=== PATIENT | female | born 1990 | race Caucasian/White ===

== ENCOUNTER → 2016-09-16 | Outpatient (CLI) | payer MEDICAID ==
--- NOTE | 2016-09-17 10:20 | US ---
EXAMINATION TYPE: US OB >= 14 wk fetus, US OB TV Cervical Measurement DATE OF EXAM: 09/17/2016 8:04 AM COMPARISON: Us on PACS HISTORY: 26-year-old female, history of pre-term delivery; ; for growth TECHNIQUE: Transabdominal (TA). (Transvaginal for cervical measurement). FINDINGS: EXAM MEASUREMENTS: GESTATIONAL AGE / DATING Physician Established: (23 weeks/ 6 days) EDC: 01/07/2017 Dates by LMP: (23 weeks/ 6 days) EDC: 01/07/2017 Dates by First Scan: (23 weeks/ 5 days) EDC: 01/06/2017 Dates by Current Scan: (24 weeks/ 6 days +/- 1W5D) EDC: 12/31/2016 SURVEY IUP: Single PLACENTA: Fundal posterior PREVIA: No previa DAR: 14.3 cm Normal CERVICAL LENGTH (transabdominal: norm > 3.0cm): 5.4 cm CERVICAL LENGTH (transvaginal: norm> 2.5cm): 4.1 cm (Supplemental transvaginal imaging performed to verify cervical length.) BIOMETRY PRESENTATION: Vertex LIE: Transverse lie with head maternal Left BPD: 6.2 cm 25 weeks / 2 days HC: 22.5 cm 24 weeks / 4 days AC: 20.2 cm 24 weeks / 6 days FL: 4.4 cm 24 weeks / 4 days ESTIMATED WEIGHT IN GRAMS: 725.3 grams ESTIMATED WEIGHT IN LBS/OZS: 1 lbs. 10oz. WEIGHT PERCENTAGE BASED ON ESTABLISHED DATE: 80.3 % HC/AC: 1.11 normal FL/AC: 21.84 normal HEART RATE: 130 bpm RHYTHM: Normal IMPRESSION: 1. Single live intrauterine with estimated gestational age of 23 weeks 6 days by LMP. Curre nt ultrasound biometry is concordant but larger (24 weeks 6 days) placing the child at the 80th perce ntile for weight. 2. Transvaginal scanning for assessment of cervical length shows a normal length of 4.1 cm.
== END ==
LOC: RADUSWWP 15:34
PROVIDERS: ATTEND Obstetrics & Gynecology
DX: Z87.51 Personal history of pre-term labor (principal); Z3A.23 23 weeks gestation of pregnancy
CPT/HCPCS: 76805; 76811; 76817

== ENCOUNTER → 2016-10-05 | Outpatient (CLI) | payer MEDICAID ==
--- NOTE | 2016-10-06 13:28 | US ---
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 with prior ; TECHNIQUE: Transabdominal (TA) GESTATIONAL AGE / DATING Physician Established: (26 weeks/4 days) EDC: 01/07/2017 Dates by LMP: (26 weeks/4 days) EDC: 01/07/2017 Dates by First Scan: (26 weeks/5 days) EDC: 01/06/2017 Dates by Current Scan: (28 weeks/0 days) EDC: 12/28/2016 SURVEY IUP: Single PLACENTA: Fundal PREVIA: No Previa DAR: 16.3 cm Normal CERVICAL LENGTH (transabdominal: norm > 3.0cm): 5.0 cm CERVICAL LENGTH (transvaginal: norm> 2.5cm): 3.5 cm (Supplemental transvaginal imaging performed to verify cervical length.) BIOMETRY PRESENTATION: Vertex LIE: Transverse with head maternal Left BPD: 7.1 cm 28 weeks / 3 days HC: 25.6 cm 27 weeks / 6 days AC: 24.0 cm 28. weeks / 2 days FL: 5.1 cm 27 weeks / 3 days ESTIMATED WEIGHT IN GRAMS: 1153 grams ESTIMATED WEIGHT IN LBS/OZ: 2 lbs. 9 oz. WEIGHT PERCENTAGE BASED ON ESTABLISHED DATES: 89.9% HC/AC: 1.07 Normal FL/AC: 21.38 Normal HEART RATE: 143 bpm RHYTHM: Normal TECHNOLOGIST IMPRESSION: Single, live, IUP,28 weeks/0 days; EDC: 12/28/2016; Cervix length wnl both TA and TVUS. , IMPRESSION: 1. Single intrauterine gestation estimated at 28 weeks 0 days gestation. This is a calculated EDC of 12/28/2016. 2. Cardiac activity measures 1 43 bpm. 3. small parts are not evaluated during this examination. 4. Cervical length is normal by transabdominal and transvaginal sonography measurements.
--- NOTE | 2016-10-06 13:29 | US ---
EXAMINATION TYPE: US OB TV Cervical Measurement DATE OF EXAM: 10/05/2016 5:10 PM COMPARISON: NONE REASON FOR EXAM: Per Ordering Physician?this transvaginal scan is to assess the CERVICAL LENGTH for i ncompetence or funneling. Transvaginal sonography is performed in conjunction with transabdominal sonography. Please see transa bdominal sonography report of same date. IMPRESSION: 1. Single intrauterine gestation estimated at 28 weeks 0 days gestation. This is a calculated EDC of 12/28/2016. 2. Cardiac activity measures 143 bpm. 3. small parts are not evaluated during this examination. 4. Cervical length is normal by transabdominal and transvaginal sonography measurements.
== END | disposition home or self-care (01) ==
LOC: RADUSWWP 15:56
PROVIDERS: ATTEND Obstetrics & Gynecology
DX: O34.32 Maternal care for cervical incompetence, second trimester (principal); Z3A.26 26 weeks gestation of pregnancy
CPT/HCPCS: 76805; 76817

== ENCOUNTER → 2016-10-10 | Outpatient (CLI) | payer MEDICAID ==
[2016-10-10 09:55] LABS: CH 34.5; CHCM 36.2; HDW 2.98; HGB 11.5 gm/dL (11.4-16.0); MCH 34.4 pg (25.0-35.0); MCHC 35.8 g/dL (31.0-37.0); Mean Platelet Volume 9.3; RBC 3.34 m/uL (3.80-5.40); RDW 13.6 % (11.5-15.5); WBC 7.4 k/uL (3.8-10.6)
== END | disposition home or self-care (01) ==
LOC: LABWHC1 08:32
PROVIDERS: ATTEND Obstetrics & Gynecology
DX: Z34.82 Encounter for supervision of other normal pregnancy, second trimester (principal); Z3A.00 Weeks of gestation of pregnancy not specified
CPT/HCPCS: 36415; 82950; 85027; 86850

== ENCOUNTER 2016-12-15 11:21 | Emergency (ER) | payer MEDICAID, OTHER ==
[2016-12-15 11:41] VITALS: BP 119/75; PULSE 76; RESP 18; TEMP 98.1
--- NOTE | 2016-12-15 12:29 | ED ---
General Adult HPI - General Chief complaint: Needlestick/Exposure Stated complaint: [facility]-needle stick Time Seen by Provider: 12/15/16 12:11 Source: patient, RN notes reviewed Mode of arrival: ambulatory Limitations: no limitations - History of Present Illness Initial comments: Patient is a 26-year-old female presents to the emergency room for evaluation of needle stick exposure. Patient states she accidentally poked herself with a 22-gauge needle on her right third digit after the a needle was injected into the patient. Patient states the site did slightly bleed afterwards. Patient denies any pain. Patient states she is up-to-date on all her immunizations. Patient states she is not sure if the source is up-to-date on immunizations. Patient states she has the resources blood with her to be tested as well. - Related Data Home Medications Medication Instructions Recorded Confirmed Pnv with Ca,No.72/Iron/FA 1 tab PO DAILY 08/16/15 11/25/15 [ Plus Tablet] Allergies Allergy/AdvReac Type Severity Reaction Status Date / Time No Known Allergies Allergy Verified 12/15/16 11:41 Review of Systems ROS Statement: Those systems with pertinent positive or pertinent negative responses have been documented in the HPI. ROS Other: All systems not noted in ROS Statement are negative. Past Medical History Past Medical History: No Reported History History of Any Multi-Drug Resistant Organisms: None Reported Past Surgical History: No Surgical Hx Reported Additional Past Surgical History / Comment(s): wisdom teeth pulled Past Anesthesia/Blood Transfusion Reactions: No Reported Reaction Past Psychological History: No Psychological Hx Reported Smoking Status: Never smoker Past Alcohol Use History: None Reported Past Drug Use History: None Reported - Past Family History Mother Family Medical History: No Reported History General Exam - General Exam Comments Initial Comments: Sitting in exam room, no acute distress. Limitations: no limitations General appearance: alert, in no apparent distress Head exam: Present: atraumatic, normocephalic, normal inspection Eye exam: Present: normal appearance ENT exam: Present: normal exam Neck exam: Present: normal inspection Respiratory exam: Present: normal lung sounds bilaterally. Absent: respiratory distress Cardiovascular Exam: Present: regular rate, normal rhythm, normal heart sounds Right Hand Wrist exam: Present: other (Small puncture wound from needle on middle phalanx of third digit) Back exam: Present: normal inspection Neurological exam: Present: alert, oriented X3, CN II-XII intact, normal gait Psychiatric exam: Present: normal affect, normal mood Skin exam: Present: warm, dry, normal color. Absent: rash Course Vital Signs 12/15/16 11:38 Temperature 98.1 F Pulse Rate 76 Respiratory 18 Rate Blood Pressure 119/75 O2 Sat by Pulse 99 Oximetry Medical Decision Making - Medical Decision Making Patient is a 26-year-old female presents to the emergency room for a needle stick injury. Labs taken. Patient did bring the source blood. The source tested negative for HIV. Patient advised to follow-up for other lab results. Return parameters discussed. Case discussed Dr. Silver. Disposition Clinical Impression: Needlestick injury of finger of right hand Disposition: HOME SELF-CARE Condition: Good Instructions: Needle Stick Injuries (ED) Additional Instructions: Please follow-up for lab results. Please follow up with primary care provider in 1-2 days. If any new symptom arises or symptoms worsen, return to ER as soon as possible. Referrals: Dom Ren MD [Primary Care Provider] - 1-2 days Time of Disposition: 12:32
== END 2016-12-15 12:30 | disposition home or self-care (01) ==
LOC: EC 11:21
DX: S61.232A Puncture wound without foreign body of right middle finger without damage to nail, initial encounter (principal); Z79.899 Other long term (current) drug therapy; W46.0XXA Contact with hypodermic needle, initial encounter; Y92.69 Other specified industrial and construction area as the place of occurrence of the external cause; Y99.0 Civilian activity done for income or pay
CPT/HCPCS: 99282

== ENCOUNTER 2016-12-26 21:24 | Inpatient (IN) | payer MEDICAID ==
[2016-12-26] MEDS ORDERED: METHYLERGONOVINE 0.2 MG/ML 1 ML AMP IM PRN (22:08)
[2016-12-26] MEDS ORDERED: OXYTOCIN 10 UNIT/ML 1 ML VIAL IM PRN (22:08)
[2016-12-26] MEDS ORDERED: LIDOCAINE 1% (PF) 10 MG/ML (30 ML SDV) SQ PRN (22:08)
[2016-12-26] MEDS ORDERED: CARBOPROST TROMETHAMINE 250 MCG/ML 1 ML AMP IM PRN (22:08)
[2016-12-26] MEDS ORDERED: TERBUTALINE 1 MG/ML VIAL SQ PRN (22:08)
[2016-12-26] MEDS ORDERED: LACTATED RINGERS 1,000 ML IV SCH (22:15)
[2016-12-26 22:25] LABS: Basophils # (A) 0.1 k/uL (0-0.2); Basophils % (A) 1 %; CH 35.1; CHCM 37.1; Eosinophils # (A) 0.1 k/uL (0-0.7); Eosinophils % (A) 1 %; HCT 37.9 % (34.0-46.0); HDW 2.72; HGB 13.4 gm/dL (11.4-16.0); Large Platelets Flag Moderate; Luc # (Auto) 0.31; Luc % (Auto) 4; Lymphocytes % (A) 24 %; MCH 33.6 pg (25.0-35.0); MCHC 35.4 g/dL (31.0-37.0); MCV 95.1 fL (80.0-100.0); Mean Platelet Volume 12.6; Monocytes # (A) 0.5 k/uL (0-1.0); Monocytes % (A) 7 %; Neutrophils # (A) 5.3 k/uL (1.3-7.7); Neutrophils % (A) 64 %; RBC 3.98 m/uL (3.80-5.40); RDW 13.1 % (11.5-15.5); WBC 8.3 k/uL (3.8-10.6); WBC (Perox) 8.34
[2016-12-26 22:26] VITALS: BMI 25.0
[2016-12-26 22:29] LABS: INR 0.9 (<1.1); Partial Thromboplastin Time 32.2 sec (22.0-30.0); Prothrombin Time 9.5 sec (9.0-12.0)
[2016-12-26] MEDS ORDERED: fentaNYL (PF) 50 MCG/ML 5 ML AMP ONE (22:35)
[2016-12-26] MEDS ORDERED: BUPIVACAINE (PF) 0.25% 30 ML VIAL ONE (22:35)
[2016-12-26] MEDS ORDERED: SODIUM CHLORIDE 0.9% 100 ML BAG ONE (22:35)
--- NOTE | 2016-12-26 22:40 | P.HPOB ---
History of Present Illness H&P Date: 12/26/16 Chief Complaint: Contractions. This patient is a pleasant 26-year-old 4 para 1 female estimated date of confinement 01/07/2017 estimated gestational age 38-2/7 weeks gestation who is admitted to labor and delivery with complaints of regular painful contractions since about 6:30 this evening. Patient's care has been complicated by antiphospholipid antibody and has been on Lovenox and heparin throughout the . She also has a history of delivery is had close observation with maternal medicine. She's now thought to be in active labor. Review of Systems Constitutional: Denies chills, Denies fever Ears, nose, mouth and throat: Denies headache, Denies sore throat Cardiovascular: Denies chest pain, Denies shortness of breath Respiratory: Denies cough Gastrointestinal: Denies abdominal pain, Denies diarrhea, Denies nausea, Denies vomiting Genitourinary: Reports Menstruation: Reports amenorrhea Past Medical History Additional Past Medical History / Comment(s): Patient has known positive antiphospholipid. History of Any Multi-Drug Resistant Organisms: None Reported Additional Past Surgical History / Comment(s): wisdom teeth pulled; patient had a D&C. Past Anesthesia/Blood Transfusion Reactions: No Reported Reaction Past Psychological History: No Psychological Hx Reported Smoking Status: Never smoker Past Alcohol Use History: None Reported Past Drug Use History: None Reported - Past Family History Mother Family Medical History: No Reported History Medications and Allergies Home Medications Medication Instructions Recorded Confirmed Type Pnv with Ca,No.72/Iron/FA 1 tab PO DAILY 08/16/15 11/25/15 History [ Plus Tablet] Heparin Sod 1000 Unit/1Ml [Heparin 7,500 BID 12/26/16 History Sodium] Allergies Allergy/AdvReac Type Severity Reaction Status Date / Time No Known Allergies Allergy Verified 12/26/16 22:05 Exam - Vital Signs Vital signs: Intake and Output 12/26/16 12/26/16 12/26/16 06:59 14:59 22:59 Other: Weight 62.142 kg Patient Weight 12/27/16 06:59 Weight 62.142 kg - OBG Physical Exam Abdomen: bowel sounds normal, no diffuse tenderness, no bruit present, no guarding noted, no hepatomegaly, no splenomegaly, no mass Vulva: both: normal Vagina: normal moisture, no discharge Cervix: Cervix is 6-7 cm dilated vertex presentation. Uterus: enlarged (Fundal height is 37 cm.) Results Patient's blood type is O- and she did receive RhoGAM. She is rubella low positive, she is negative for hepatitis B, RPR is nonreactive, group B strep was negative. Ultrasound on December 07 showed the to be 6 lbs. 4 oz. Assessment and Plan (1) Third trimester Narrative/Plan: This is a pleasant 26-year-old 4 para 1 female 38-2/7 weeks gestation who is admitted in active labor. Patient's been on heparin for positive antiphospholipid antibody therefore we'll check coagulation factors and CBC at this time. Plan is anticipate normal spontaneous vaginal delivery. Status: Acute (2) Normal labor Status: Acute (3) Antiphospholipid antibody positive Status: Acute
[2016-12-26] MEDS ORDERED: BUPIVACAINE (PF) 0.25% 25 ML, fentaNYL (PF) 200 MCG in SODIUM CHLORIDE 0.9% 71 ML EPIDURAL ONE (22:53)
[2016-12-26] MEDS ORDERED: ceFAZolin 1,000 MG VIAL ONE (23:25)
[2016-12-26] MEDS ORDERED: LIDOCAINE HCL/PF 20 MG/ML 10 ML AMP ONE (23:25)
[2016-12-26] MEDS ORDERED: OXYTOCIN 10 UNIT/ML 1 ML VIAL IM ONE (23:25)
[2016-12-26] MEDS ORDERED: LACTATED RINGERS 1,000 ML BAG IV ONE (23:25)
[2016-12-26 23:31] LABS: Large Platelets Present; Polychromasia Present
[2016-12-26 23:45] LABS: Manual Review Performed
[2016-12-27] MEDS ORDERED: HYDROmorphone PCA 5 MG/25 ML SYRINGE IV PRN (00:13)
[2016-12-27] MEDS ORDERED: diphenhydrAMINE 50 MG/ML 1 ML VIAL IVP PRN (00:13)
[2016-12-27] MEDS ORDERED: Rhogam IMMUNE GLOBULIN 1,500 UNIT/1 ML IM ONE (00:13)
[2016-12-27] MEDS ORDERED: Acetaminophen-Codeine 300-30mg TAB PO PRN ×2 (00:13)
[2016-12-27] MEDS ORDERED: IBUPROFEN 600 MG TAB PO PRN (00:13)
[2016-12-27] MEDS ORDERED: NALOXONE 0.4 MG/ML 1 ML VIAL IV PRN (00:13)
[2016-12-27] MEDS ORDERED: ONDANSETRON 4 MG/2 ML VIAL IVP PRN (00:13)
[2016-12-27] MEDS ORDERED: MEASLES-MUMPS-RUBELLA VACC/PF 12,500 UNIT/0.5 ML VIAL SQ ONE (00:13)
[2016-12-27] MEDS ORDERED: diphenhydrAMINE 25 MG CAP PO PRN (00:13)
[2016-12-27] MEDS ORDERED: SIMETHICONE 80 MG CHEWABLE PO PRN (00:13)
[2016-12-27] MEDS ORDERED: ZOLPIDEM 5 MG TAB PO PRN (00:13)
[2016-12-27] MEDS ORDERED: METOCLOPRAMIDE 5 MG/ML 2 ML VIAL IVP PRN (00:13)
[2016-12-27] MEDS ORDERED: OXYTOCIN 30 UNITS/500 ML NS 30 UNIT in SALINE 1 500ML.BAG IV SCH (00:15)
--- NOTE | 2016-12-27 00:43 | P.OP ---
Date of Procedure: 12/26/16 Preoperative Diagnosis: #1: 38-2/7 weeks . #2: Nonreassuring heart tones remote from delivery. Postoperative Diagnosis: #1: Same. #2: Nuchal cord 1 Procedure(s) Performed: Emergent primary low transverse section Anesthesia: epidural Surgeon: Arjun Sanchez Periodontist #1: Annetta Kilpatrick Estimated Blood Loss (ml): 800 Pathology: other (Center) Condition: stable Disposition: floor Indications for Procedure: Please see dictated H&P for intimate details of this patient's admission. Brief summary is a pleasant 26-year-old 4 para 1 female estimated gestational age 38-2/7 weeks gestation who is admitted to labor and delivery with complaints of regular painful contractions and spontaneous rupture membranes. Patient is admitted and and coags and platelets are checked due to the patient's heparin use. Epidural was placed per anesthesia with good pain relief. Patient progresses to approximately 7 cm dilated and 0 station and begins having repetitive bradycardic episodes. The usual resuscitative measures are done including position changes and oxygen and heart tones intermittently improved however she continues to have repetitive episodes of bradycardia to the 80s and 90s. Exam shows her to be remote from delivery and I recommend she proceed with immediate at this time. Patient and I and the discussed this and she understands and wishes to proceed. Understands this surgery and risks including risks of infection, bleeding, possible injury to bowel, bladder, vessels, and other organs. She understands risk of DVT and pulmonary embolism. All the patient's questions are answered and a written consent is obtained. Operative Findings: This was a viable female Apgars 8 and 9 at 2337 hrs. There was a nuchal cord 1 and was straight occiput posterior presentation. Description of Procedure: This patient has a Villasenor catheter placed to straight drain. She subsequently taken to the operating room where the epidural was dosed up for sufficient level of anesthesia. With an adequate level of anesthesia she has abdominal prep and drape. Scalpels and taken Pfannenstiel skin incision is made. A second scalpel is taken down the fascia and the fascia scored with a knife. Fascial incision extended bilaterally using the Earl scissors. Fascia is then dissected sharply off the rectus muscles. Rectus muscles are the peritoneum identified and entered sharply. Peritoneal incision extended superior and inferior without difficulty. Bladder blade is then placed. Bladder peritoneum was taken off the lower uterine segment sharply. Scalpels and taken a low transverse uterine incision is then made. Using a hemostat I then enter the uterine cavity bluntly and there is loss of clear fluid. This incision is extended bluntly. The infant's head is then guided through the incision is straight occiput posterior presentation. Mouth and nares are bulb suctioned. There is a nuchal cord 1 which is reduced. We then have deliver the anterior and posterior shoulder and rest this 's body. This is a vigorous viable female Apgars are 8 and 9 delivery time is 2337 hrs. After delivery of the the umbilical cord is doubly clamped and cut it appears to be trivascular. Placenta is then manually extracted intact. Uterus is then externalized and the uterine incision demarcated with Burrows clamps. Uterine incision then closed using 0 Vicryl running locked fashion 2 layers. Good hemostasis is noted. Bladder peritoneum was then closed using a 3 -0 Vicryl running fashion. Excess fluid is removed from and pelvis. Uterus is placed back into the abdomen. Parietal peritoneum was then identified and closed using 0 Vicryl running fashion. The rectus muscles are reapproximated in 0 Vicryl interrupted fashion. The fascia is then reapproximated using a running 0 PDS suture. Fascial incision is intact and hemostatic. Subcutaneous tissues and reapproximated using a 3-0 Vicryl. Skin is then closed using yenifer. Sterile dressing is then applied. All counts are correct 3. There are no complications.
[2016-12-27] MEDS ORDERED: CITRIC ACID-SODIUM CITRATE 15 ML CUP PO ONE (01:17)
--- NOTE | 2016-12-27 02:10 | P.MSEPDOC ---
Presenting Problems - Arrival Data Date of Arrival on Unit: 12/26/16 Time of Arrival on Unit: 21:26 Mode of Transport: Wheelchair - Complaint OB-Reason for Admission/Chief Complaint: Possible Onset of Labor Comment: Contractions every 2 minutes Medical History - Information : 4 Para: 1 Term: 0 : 1 Abortions: Spontaneous or Elective: 2 Number of Living Children: 1 - Gestational Age Expected Date of Delivery: 01/07/17 Gestational Age by KRUNAL (wks/days): 38 Weeks and 3 Days - History Comment: History of Beta II Gylcoprotein or Antiphospholipid syndrome Review of Systems - Review of Systems Constitutional: No problems Breast: No problems ENT: No problems Cardiovascular: No problems Respiratory: No problems Gastrointestinal: No problems Genitourinary: No problems Musculoskeletal: No problems Neurological: No problems Skin: No problems Vital Signs - Temperature Temperature: 98.1 F Temperature Source: Temporal Artery Scan - Pulse Right Sitting Pulse Rate: 75 Pulse Assessment Method: Pulse Oximetry - Respirations Respiratory Rate: 16 Oxygen Delivery Method: Room Air O2 Sat by Pulse Oximetry: 98 - Blood Pressure Right Arm Blood Pressure: 111/67 Blood Pressure Mean: 81 Blood Pressure Source: Automatic Cuff Medical Screen Scoring (Pre) - Cervical Exam Dilation: 4-7 cm = 2 Effacement: More than 50% = 2 Membranes: Intact - Uterine Contractions Frequency: > or = 36 weeks =2 Duration: > 40 seconds = 2 Intensity: N/A - Maternal Vital Signs Maternal Temperature: N/A Maternal Blood Pressure: N/A Signs of Preeclampsia: N/A Maternal Respirations: N/A - Maternal Trauma Maternal Trauma: N/A - Assessment Baseline FHR: 125 Heart Rate - NICHD Category: Category I (Normal) = 0 NST: Reactive Position: N/A Station: N/A - Total Score Total Score (Pre): 8 - Level of Risk Level of Risk: Medium (6-9) Physician Notification (Pre) - Physician Notified Physician Notified Date: 12/26/16 Physician Notified Time: 21:41 Physician/Practitioner Notifed:: Dr. Sanchez New Order Received: Yes - Notification Comment Comment: Admit patient for labor, physician coming in. Medical Screen Scoring (Post) - Cervical Exam Dilation: 4-7 cm = 2 Effacement: More than 50% = 2 Membranes: Intact - Uterine Contractions Frequency: > or = 36 weeks =2 Duration: > 40 seconds = 2 Intensity: N/A - Maternal Vital Signs Maternal Temperature: N/A Maternal Blood Pressure: N/A Signs of Preeclampsia: N/A Maternal Respirations: N/A - Maternal Trauma Maternal Trauma: N/A - Assessment Heart Rate - NICHD Category: Category I (Normal) = 0 - Total Score Total Score (Post): 8 - Post Treatment Level of Risk Post Treatment Level of Risk: Medium (6-9) Physician Notification (Post) - Physician Notified Physician Notified Date: 12/26/16 Physician Notified Time: 21:41 Physician/Practitioner Notified:: Dr. Sanchez - Notification Comment Comment: Admit patient for labor, Dr. Sanchez coming in Disposition - Disposition OB Disposition: Admit, LDRP Suite Transferred to:: Suite 6 I agree with the RN Medical Screening Exam: Yes Risk & Benefit of care provided described in d/c instruction: Yes Diagnosis: PERSONAL HISTORY OF PRE-TERM LABOR
[2016-12-27] MEDS: ACETAMINOPHEN TAB 325 MG TAB PO PRN ×4 (02:36→18:22)
[2016-12-27] MEDS: LACTATED RINGERS 1,000 ML IV SCH ×2 (04:14→20:02)
[2016-12-27] MEDS: ceFAZolin 2 GM in SODIUM CHLORIDE 0.9% 100 ML IVPB SCH ×2 (07:41→17:21)
--- NOTE | 2016-12-27 07:42 | P.PNOBGPC ---
Subjective - Subjective Patient reports: Reports voiding normally, Reports pain well controlled [place]: doing well Objective - Vital Signs Latest vital signs: Vital Signs Temp Pulse Resp BP Pulse Ox 12/27/16 02:10 98.1 F 75 16 111/67 98 12/27/16 02:08 97.7 F 65 16 116/77 98 12/27/16 01:38 98.1 F 75 16 111/67 98 12/27/16 01:08 97.8 F 84 16 108/61 99 12/27/16 00:53 97.6 F 81 16 111/63 99 12/27/16 00:36 96.6 F L 75 16 112/61 100 12/27/16 00:23 96.9 F L 87 16 114/66 100 12/27/16 00:08 97.0 F L 88 16 109/61 100 12/26/16 22:20 97.2 F L 104 H 16 128/86 12/26/16 22:07 97.2 F L 104 H 16 128/86 Intake and Output 12/26/16 12/27/16 12/27/16 22:59 06:59 14:59 Output Total 1750 Balance -1750 Output: Urine 1750 Other: Voiding Method Indwelling Catheter Weight 62.142 kg - Exam Lungs: bilateral: normal Chest: Normal S1, Normal S2 Extremities: Present: normal Abdomen: Present: normal appearance, soft. Absent: distention, tenderness Incision: Present: normal, dry, intact Uterus: Present: normal, firm - Labs Labs: Abnormal Lab Results - Last 24 Hours (Table) 12/26/16 12/26/16 Range/Units 22:10 22:10 Plt Count 121 L (150-450) k/uL APTT 32.2 H (22.0-30.0) sec Assessment and Plan (1) Third trimester Narrative/Plan: Postoperative day #1. Patient is resting without new complaints, she is having some nausea. Vital signs are stable she is afebrile. Uterus is firm nontender and her incision is intact and dry. CBC is pending at this time. Plan today is to continue routine postoperative care. We'll repeat her CBC and check her platelets and hemoglobin. Epidural catheter removed this morning and I'll restart her Lovenox tomorrow morning. Advance diet as tolerated. Current Visit: Yes Status: Acute Code(s): Z33.1 - STATE, INCIDENTAL SNOMED Code(s): 93635278 (2) Normal labor Current Visit: Yes Status: Acute Code(s): O80 - ENCOUNTER FOR FULL-TERM UNCOMPLICATED DELIVERY; Z37.9 - OUTCOME OF DELIVERY, UNSPECIFIED SNOMED Code(s ): 33591847 (3) Antiphospholipid antibody positive Current Visit: Yes Status: Acute Code(s): R76.0 - RAISED ANTIBODY TITER SNOMED Code(s): 984006284
[2016-12-27] MEDS: KETOROLAC 30 MG/ML 1 ML VIAL IVP PRN ×3 (08:07→22:43)
[2016-12-27 08:21] LABS: Basophils % (A) 0 %; CH 34.6; CHCM 35.9; Eosinophils % (A) 0 %; HCT 33.6 % (34.0-46.0); HDW 2.68; HGB 11.6 gm/dL (11.4-16.0); Large Platelets Flag Slight; Luc # (Auto) 0.29; Luc % (Auto) 2; Lymphocytes % (A) 7 %; MCH 33.3 pg (25.0-35.0); MCHC 34.4 g/dL (31.0-37.0); MCV 96.9 fL (80.0-100.0); Mean Platelet Volume 11.3; Monocytes # (A) 0.6 k/uL (0-1.0); Monocytes % (A) 5 %; Neutrophils # (A) 11.9 k/uL (1.3-7.7); Neutrophils % (A) 86 %; RBC 3.47 m/uL (3.80-5.40); RDW 13.1 % (11.5-15.5); WBC 13.9 k/uL (3.8-10.6); WBC (Perox) 14.75
[2016-12-27 08:39] LABS: Large Platelets Present
[2016-12-27] MEDS: SENNOSIDES-DOCUSATE SODIUM 1 EACH TAB PO SCH ×2 (09:00→20:05)
[2016-12-27 23:26] VITALS: RESP 16
[2016-12-28] MEDS: LACTATED RINGERS 1,000 ML IV SCH (01:55)
[2016-12-28] MEDS: ACETAMINOPHEN TAB 325 MG TAB PO PRN (02:09)
[2016-12-28] MEDS: SENNOSIDES-DOCUSATE SODIUM 1 EACH TAB PO SCH (07:57)
[2016-12-28] MEDS ORDERED: ENOXAPARIN 40 MG/0.4 ML SYRINGE SQ SCH (09:00)
[2016-12-28 09:05] VITALS: BP 107/67; PULSE 71; TEMP 97.9
--- NOTE | 2016-12-28 09:05 | P.DS ---
Providers Date of admission: 12/26/16 21:48 Expected date of discharge: 12/28/16 Attending physician: Arjun Sanchez Primary care physician: Arjun Sanchez [facility] Course: This is a 26-year-old female 4 para 1 with an estimated date of confinement of 01/07/2017, estimated gestational age of 38-3/7 weeks, who presented with active labor and spontaneous rupture of membranes. She progressed in labor to approximately 7 cm and then began having repetitive decelerations. She underwent a primary low transverse section under epidural anesthesia and delivered a viable female infant with scores of 8 at 1 minute and 9 at 5 minutes and infant weight is 7 lbs. 6 oz. on 12/26/2016. Her hospital course was uncomplicated. She is currently postoperative day #2 and is passing flatus but no bowel movement yet. Her pain is well-controlled with oral pain medications. She is breast-feeding without difficulty. Lochia is decreasing. Impression is status post primary low transverse section postoperative day #2. Plan is to discharge home today. Uche will be removed and Steri-Strips placed prior to discharge. Routine postoperative and instructions are given. She is advised to call the office if she has any further questions or concerns prior to her appointment time. She is advised to follow up in the office in approximately 1 week for postoperative check and in 6 weeks for check. She will be given prescriptions for ibuprofen, Tylenol 3, and a breast pump. Procedures: Primary low transverse section on 12/26/2016 Patient Condition at Discharge: Stable Plan - Discharge Summary New Discharge Prescriptions: Acetaminophen-Codeine 300-30mg [Tylenol w/codeine #3] 1 each PO Q4HR PRN #30 tab PRN Reason: Mild Pain Ibuprofen [Motrin] 600 mg PO Q6HR PRN #60 tab PRN Reason: Mild Pain Or Fever >= 100.5 Discharge Medication List Pnv with Ca,No.72/Iron/FA [ Plus Tablet] 1 tab PO DAILY 08/16/15 [ History] Acetaminophen-Codeine 300-30mg [Tylenol w/codeine #3] 1 each PO Q4HR PRN #30 tab 12/28/16 [Rx] Enoxaparin [Lovenox] 40 mg SQ DAILY syringe 12/28/16 [Rx] Ibuprofen [Motrin] 600 mg PO Q6HR PRN #60 tab 12/28/16 [Rx] Follow up Appointment(s)/Referral(s): Iqra Rojas DO [Doctor of Osteopathic Medicine] - 1 Week (Postoperative check in 1 week check in 6 weeks) Activity/Diet/Wound Care/Special Instructions: Instructions 1. Do not begin any exercise program for 3 weeks. 2. Do not resume sexual relations for 3 weeks or longer if uncomfortable. 3. You may take tub baths or showers at any time. 4. You may use tampons if desired after 3 weeks. 5. Keep the area of episiotomy (stitches) clean and dry. 6. If you are not nursing, wear a good fitting, supportive bra during the day and limit fluid intake for at least 1 week to prevent breast engorgement. 7. Call the office, [phone], within the next week to make appointment for your 6 week checkup if it has not already been made. 8. Report any of the following occurrences to the doctor promptly: a. Heavy, excessive bleeding b. Chills, fever c. Burning or frequency of urination d. Pain or redness and breasts if nursing e. Increasing pain or swelling in episiotomy (stitches). In addition to the above instructions, the following additional should be followed: 1. No heavy lifting or straining (exercising) until after 6 week checkup. 2. Keep abdominal incision clean and dry: You may wear a dressing if more comfortable. 3. Make office appointment for 10 days after going home or as instructed by her doctor. Discharge Disposition: HOME SELF-CARE
[2016-12-28 09:34] LABS: Basophils % (A) 0 %; CH 34.4; CHCM 36.4; Eosinophils # (A) 0.1 k/uL (0-0.7); Eosinophils % (A) 1 %; HCT 32.5 % (34.0-46.0); HDW 2.87; HGB 11.8 gm/dL (11.4-16.0); Large Platelets Flag Slight; Luc # (Auto) 0.19; Luc % (Auto) 2; Lymphocytes # (A) 1.4 k/uL (1.0-4.8); Lymphocytes % (A) 14 %; MCH 34.4 pg (25.0-35.0); MCHC 36.2 g/dL (31.0-37.0); Mean Platelet Volume 10.9; Monocytes # (A) 0.4 k/uL (0-1.0); Monocytes % (A) 4 %; Neutrophils # (A) 8.1 k/uL (1.3-7.7); Neutrophils % (A) 79 %; RBC 3.42 m/uL (3.80-5.40); WBC 10.3 k/uL (3.8-10.6); WBC (Perox) 10.61
[2016-12-28 10:22] LABS: Manual Review Performed
[2016-12-28 10:23] LABS: Large Platelets Present; RBC Morphology Normal
== END 2016-12-28 12:55 | disposition home or self-care (01) | DRG 765 ==
LOC: FBPOP 21:24 → 4FBP 21:48
PROVIDERS: ADMIT Obstetrics & Gynecology; ATTEND Obstetrics & Gynecology
PROC: 3E0S3NZ Introduction of Analgesics, Hypnotics, Sedatives into Epidural Space, Percutaneous Approach (ICD-10-PCS; 2016-12-26)
PROC: 10D00Z1 Extraction of Products of Conception, Low, Open Approach (ICD-10-PCS; principal; 2016-12-26 23:22)
PROC: 3E0234Z Introduction of Serum, Toxoid and Vaccine into Muscle, Percutaneous Approach (ICD-10-PCS; 2016-12-27)
PROC: 3E0134Z Introduction of Serum, Toxoid and Vaccine into Subcutaneous Tissue, Percutaneous Approach (ICD-10-PCS; 2016-12-27)
DX: O76 Abnormality in fetal heart rate and rhythm complicating labor and delivery (principal); O99.12 Other diseases of the blood and blood-forming organs and certain disorders involving the immune mechanism complicating childbirth; D68.61 Antiphospholipid syndrome; O09.219 Supervision of pregnancy with history of pre-term labor, unspecified trimester; O69.81X0 Labor and delivery complicated by cord around neck, without compression, not applicable or unspecified; O32.8XX0 Maternal care for other malpresentation of fetus, not applicable or unspecified; O26.893 Other specified pregnancy related conditions, third trimester; R11.0 Nausea; Z3A.38 38 weeks gestation of pregnancy; Z37.0 Single live birth; Z23 Encounter for immunization; Z67.41 Type O blood, Rh negative; Z79.01 Long term (current) use of anticoagulants
CPT/HCPCS: 59025; 85025; 85461; 85610; 85730; 88307; 90707; 99213

== ENCOUNTER → 2019-08-10 | Outpatient (CLI) | payer MEDICAID ==
[2019-08-10 07:14] LABS: Basophils % (A) 0 %; Eosinophils # (A) 0.2 k/uL (0-0.7); Eosinophils % (A) 4 %; HGB 14.1 gm/dL (11.4-16.0); Lymphocytes # (A) 1.6 k/uL (1.0-4.8); Lymphocytes % (A) 34 %; MCH 32.5 pg (25.0-35.0); MCHC 35.2 g/dL (31.0-37.0); MCV 92.4 fL (80.0-100.0); Mean Platelet Volume 8.9; Monocytes # (A) 0.4 k/uL (0-1.0); Monocytes % (A) 8 %; Neutrophils # (A) 2.4 k/uL (1.3-7.7); Neutrophils % (A) 51 %; Platelet Count 160 k/uL (150-450); RBC 4.33 m/uL (3.80-5.40); RDW 12.1 % (11.5-15.5); WBC 4.7 k/uL (3.8-10.6)
[2019-08-10 14:20] LABS: ALT 12 U/L (8-44); AST 19 U/L (13-35); African American GFR (CKD) 115.5 (60.0-200.0); Albumin/Globulin Ratio 2.37 (1.60-3.17); Alkaline Phosphatase 41 U/L (41-126); BUN/Creat Ratio 21.25 Ratio (12.00-20.00); Calcium 9.2 mg/dL (8.7-10.3); Carbon Dioxide 24.1 mmol/L (21.6-31.8); Chloride 108 mmol/L (96-109); Chol/HDL Ratio 2.49; Cholesterol 167 mg/dL (0-200); Globulin 1.9 g/dL (1.6-3.3); Glucose 89 mg/dL (70-110); Non-African American GFR(CKD) 99.6 (60.0-200.0); Sodium 142 mmol/L (135-145); Total Bilirubin 0.6 mg/dL (0.2-1.2); Total Protein 6.4 g/dL (6.2-8.2); Triglycerides <50.0 mg/dL (0.0-149.0)
== END | disposition home or self-care (01) ==
LOC: LABWHC1 06:44
PROVIDERS: ATTEND Family Medicine
DX: Z00.00 Encounter for general adult medical examination without abnormal findings (principal)
CPT/HCPCS: 36415; 80053; 80061; 84443; 85025

== ENCOUNTER → 2021-10-17 | Outpatient (CLI) | payer MEDICAID ==
--- NOTE | 2021-10-19 09:12 | US ---
EXAMINATION TYPE: US OB TV Cervical Measurement DATE OF EXAM: 10/17/2021 COMPARISON: US REASON FOR EXAM: Per Ordering Physician?this transvaginal scan is to assess the CERVICAL LENGTH for i ncompetence or funneling. GESTATIONAL AGE / DATING Physician Established: (23 weeks/6 days) EDC: 02-07-22 MATERNAL/ SURVEY CERVICAL LENGTH (transvaginal: norm> 2.5cm): 3.9 cm Ultrasound evidence of shortened cervix? no Ultrasound evidence of funneling? no Central canal of the cervix may have very minimal fluid. HEART RATE: 144 bpm RHYTHM: Normal IMPRESSION: Cervical canal appears normal in length. Some minimal central fluid is not excluded.
== END | disposition home or self-care (01) ==
LOC: RADUSWWP 15:30
PROVIDERS: ATTEND Obstetrics & Gynecology
DX: Z87.51 Personal history of pre-term labor (principal)
CPT/HCPCS: 76817

== ENCOUNTER → 2021-10-25 | Outpatient (CLI) | payer MEDICAID ==
[2021-10-25 12:02] LABS: HCT 33.2 % (37.2-46.3); HGB 11.6 g/dL (12.0-15.0); MCH 33.1 pg (27.0-32.0); MCHC 34.9 g/dL (32.0-37.0); MCV 94.9 fL (80.0-97.0); Mean Platelet Volume 12.9 fL (9.5-12.2); NRBC Per 100 WBC 0 /100 WBCS (0.0-0.0); Platelet Count 161 X 10*3/uL (140-440); WBC 5.61 X 10*3/uL (4.50-10.00)
== END | disposition home or self-care (01) ==
LOC: LABWHC1 08:01
PROVIDERS: ATTEND Obstetrics & Gynecology
DX: Z34.82 Encounter for supervision of other normal pregnancy, second trimester (principal)
CPT/HCPCS: 36415; 82950; 85027; 86850; 86900; 86901

== ENCOUNTER → 2021-11-18 | Outpatient (CLI) | payer MEDICAID ==
--- NOTE | 2021-11-19 07:53 | US ---
EXAMINATION TYPE: US OB >= 14 wk fetus DATE OF EXAM: 11/18/2021 COMPARISON: Prev cervical measurement only CLINICAL HISTORY: O36.63X0 Large for dates third trimester For Growth, 3rd trimester TECHNIQUE: Transabdominal (TA) GESTATIONAL AGE / DATING Physician Established: (28 weeks/3 days) EDC: 02/07/2022 Dates by LMP: (28 weeks/3 days) EDC: 02/07/2022 Dates by First Scan: No prior growth on previous exam Dates by Current Scan: (27 weeks/5 days) EDC: 02/12/2022 SURVEY IUP: Single PLACENTA: Anterior PREVIA: No Previa DAR: 11.6 cm Normal CERVICAL LENGTH (transabdominal: norm > 3.0cm): 3.6 cm BIOMETRY PRESENTATION: Vertex BPD: 7.2 cm 28 weeks / 6 days HC: 26.0 cm 28 weeks / 2 days AC: 23.4 cm 27 weeks / 5 days FL: 5.2 cm 27 weeks / 4 days ESTIMATED WEIGHT IN GRAMS: 1130 grams ESTIMATED WEIGHT IN LBS/OZ: 2 lbs. 8 oz. WEIGHT PERCENTAGE BASED ON ESTABLISHED DATES: 17.8% HC/AC: 1.11 Normal FL/AC: 22 Normal HEART RATE: 147 bpm RHYTHM: Normal IMPRESSION: Single, viable IUP growth in 17.8th percentile
== END | disposition home or self-care (01) ==
LOC: RADUSWWP 15:34
PROVIDERS: ATTEND Obstetrics & Gynecology
DX: O00.01 Abdominal pregnancy with intrauterine pregnancy (principal); Z3A.27 27 weeks gestation of pregnancy
CPT/HCPCS: 76805

== ENCOUNTER → 2021-12-15 | Outpatient (CLI) | payer MEDICAID ==
--- NOTE | 2021-12-16 08:53 | US ---
EXAMINATION TYPE: US OB >= 14 wk fetus DATE OF EXAM: 12/15/2021 COMPARISON: 11/18/2021 CLINICAL HISTORY: 31-year-old female O36.63X0 LARGE FOR DATES TECHNIQUE: Transabdominal (TA) FINDINGS: GESTATIONAL AGE / DATING Physician Established: (32 weeks/2 days) EDC: 02/07/22 Dates by LMP: (32 weeks/2 days) EDC: 02/07/22 Dates by First Scan: (31 weeks/4 days) EDC: 02/12/22 Dates by Current Scan: (32 weeks/0 days) EDC: 02/09/22 SURVEY IUP: Single PLACENTA: Anterior PREVIA: No Previa DAR: 10.0 cm Normal CERVICAL LENGTH (transabdominal: norm > 3.0cm): 3.0 cm BIOMETRY PRESENTATION: Vertex LIE: Longitudinal BPD: 7.8 cm 31 weeks / 3 days HC: 29.4 cm 32 weeks / 4 days AC: 27.7 cm 31 weeks / 6 days FL: 6.2 cm 32 weeks / 1 days ESTIMATED WEIGHT IN GRAMS: 1862 grams ESTIMATED WEIGHT IN LBS/OZ: 4 lbs. 2 oz. WEIGHT PERCENTAGE BASED ON ESTABLISHED DATES: 28% HC/AC: 1.06Normal FL/AC: 22% Normal HEART RATE: 126 bpm RHYTHM: Normal structures not assessed on this exam. IMPRESSION: Single living intrauterine with estimated gestational age of 32 weeks 2 days by LMP. Curren t ultrasound biometry is concordant (32 weeks 0 days) placing the child at the 28th percentile for we ight (versus 18%, previously). 3 days more growth than expected compared to 11/18/2021.
== END | disposition home or self-care (01) ==
LOC: RADUSWWP 15:36
PROVIDERS: ATTEND Obstetrics & Gynecology
DX: O36.63X0 Maternal care for excessive fetal growth, third trimester, not applicable or unspecified (principal); Z3A.32 32 weeks gestation of pregnancy
CPT/HCPCS: 76805

== ENCOUNTER 2022-01-06 17:10 | Inpatient (IN) | payer MEDICAID ==
[2022-01-06] MEDS ORDERED: CITRIC ACID-SODIUM CITRATE 15 ML CUP PO ONE (17:33)
[2022-01-06] MEDS: LACTATED RINGERS 1,000 ML IV SCH ×2 (17:50→22:54)
[2022-01-06 17:55] LABS: Basophils # (A) 0.1 k/uL (0-0.2); Basophils % (A) 1 %; Eosinophils # (A) 0.3 k/uL (0-0.7); Eosinophils % (A) 3 %; HCT 41.1 % (34.0-46.0); HGB 13.5 gm/dL (11.4-16.0); Lymphocytes # (A) 2.1 k/uL (1.0-4.8); Lymphocytes % (A) 17 %; MCHC 32.9 g/dL (31.0-37.0); MCV 97.3 fL (80.0-100.0); Mean Platelet Volume 11.3; Monocytes # (A) 0.5 k/uL (0-1.0); Monocytes % (A) 4 %; Neutrophils % (A) 73 %; Platelet Count 175 k/uL (150-450); RBC 4.22 m/uL (3.80-5.40); RDW 13.3 % (11.5-15.5); WBC 12.3 k/uL (3.8-10.6)
[2022-01-06] MEDS ORDERED: ONDANSETRON 4 MG/2 ML VIAL ONE (18:00)
[2022-01-06] MEDS ORDERED: KETOROLAC 15 MG/ML 1 ML VIAL ONE (18:00)
[2022-01-06] MEDS ORDERED: MORPHINE SULFATE (PF) 0.3 MG/0.3 ML SYR ONE (18:00)
[2022-01-06] MEDS ORDERED: OXYTOCIN 30 UNITS/500 ML NS BAG IV ONE (18:00)
[2022-01-06] MEDS ORDERED: NALBUPHINE 10 MG/ML (1 ML AMP) ONE (18:00)
[2022-01-06] MEDS ORDERED: Rhogam IMMUNE GLOBULIN 1,500 UNIT/1 ML IM ONE (18:59)
[2022-01-06] MEDS ORDERED: NALOXONE 0.4 MG/ML 1 ML VIAL IV PRN ×2 (18:59→21:24)
[2022-01-06] MEDS ORDERED: ZOLPIDEM 5 MG TAB PO PRN (18:59)
[2022-01-06] MEDS ORDERED: diphenhydrAMINE 50 MG/ML 1 ML VIAL IVP PRN ×2 (18:59)
[2022-01-06] MEDS ORDERED: ONDANSETRON 4 MG/2 ML VIAL IVP PRN (18:59)
[2022-01-06] MEDS ORDERED: diphenhydrAMINE 50 MG CAP PO PRN (18:59)
[2022-01-06] MEDS ORDERED: SIMETHICONE 80 MG CHEWABLE PO PRN (18:59)
[2022-01-06] MEDS ORDERED: LANOLIN CREAM 5 GM TUBE TOPICAL PRN (18:59)
[2022-01-06] MEDS ORDERED: METOCLOPRAMIDE 5 MG/ML 2 ML VIAL IVP PRN (18:59)
[2022-01-06] MEDS ORDERED: OXYTOCIN 30 UNITS/500 ML NS 30 UNIT in SALINE 1 500ML.BAG IV SCH (19:00)
--- NOTE | 2022-01-06 19:08 | P.HPOB ---
History of Present Illness H&P Date: 01/06/22 Chief Complaint: painless vaginal bleeding 31 year old G 5 P2 presents at 35 weeks and 3 days with vaginal bleeding. Vaginal bleeding is heavy filling pad every 15 minutes. She was not feeling any discomfort upon arrival but did start to feel some contractions. Her contra ctions are every 1-2 minutes. heart tones are 135 with moderate variability was 1 deceleration that lasted 30 seconds with good return to baseline. Review of Systems All systems: negative Constitutional: Denies chills, Denies fever Eyes: denies blurred vision, denies pain Ears, nose, mouth and throat: Denies headache, Denies sore throat Cardiovascular: Denies chest pain, Denies shortness of breath Respiratory: Denies cough Gastrointestinal: Denies abdominal pain, Denies diarrhea, Denies nausea, Denies vomiting Genitourinary: Denies dysuria, Denies hematuria Musculoskeletal: Denies myalgias Integumentary: Denies pruritus, Denies rash Neurological: Denies numbness, Denies weakness Psychiatric: Denies anxiety, Denies depression Endocrine: Denies fatigue, Denies weight change Past Medical History Past Medical History: No Reported History Additional Past Medical History / Comment(s): Patient has known positive antiphospholipid. History of Any Multi-Drug Resistant Organisms: None Reported Past Surgical History: No Surgical Hx Reported Additional Past Surgical History / Comment(s): wisdom teeth pulled; patient had a D&C. Past Anesthesia/Blood Transfusion Reactions: No Reported Reaction Smoking Status: Never smoker - Past Family History Mother Family Medical History: No Reported History Medications and Allergies Home Medications Medication Instructions Recorded Confirmed Type Pnv,Calcium 72/Iron/Folic Acid 1 tab PO DAILY 08/16/15 01/06/22 History [ Plus Tablet] Aspirin 81 mg PO DAILY 01/06/22 01/06/22 History Hydroxyprogesterone Caproat/Pf 275 mg SQ WEEKLY 01/06/22 01/06/22 History [Tessie 275 mg/1.1 ml Autoinjct] Allergies Allergy/AdvReac Type Severity Reaction Status Date / Time No Known Allergies Allergy Verified 01/06/22 17:20 Exam Osteopathic Statement: *. No significant issues noted on an osteopathic structural exam other than those noted in the History and Physical/Consult. Intake and Output 01/06/22 01/06/22 01/06/22 06:59 14:59 22:59 Other: Weight 60.328 kg Heart: Regular rate and rhythm Lungs: Clear to auscultation bilaterally Abdomen: Soft, nontender Extremities: Negative Homans sign Cervical exam is 1 cm dilated, 60% effaced, and -3 station. She does have a few clots in a towel and had some bright red blood on her legs Results Result Diagrams: 01/06/22 17:30 Abnormal Lab Results - Last 24 Hours (Table) 01/06/22 Range/Units 17:30 WBC 12.3 H (3.8-10.6) k/uL Neutrophils # 9.0 H (1.3-7.7) k/uL Assessment and Plan (1) 35 weeks gestation of Current Visit: Yes Status: Acute Code(s): Z3A.35 - 35 WEEKS GESTATION OF SNOMED Code(s): 58043980 (2) Previous section Current Visit: Yes Status: Acute Code(s): Z98.891 - HISTORY OF UTERINE SCAR FROM PREVIOUS SURGERY SNOMED Code(s): 119016554 (3) Placental abruption Current Visit: Yes Status: Acute Code(s): O45.90 - PREMATURE SEPARATION OF PLACENTA, UNSP, UNSP TRIMESTER SNOMED Code(s): 740073605 Plan: 1. This is a clinical abruption so IV access was gained, CBC and blood type percent to lab. 2. I examined the patient and then had a conversation with her and her . We had a discussion about my findings and the fact that I think that she is abrupting. heart tones are still category 1 but moving towards category 2. We discussed that with a clinical abruption she could potentially still deliver vaginally as it was her plan to . Patient and I and the all discussed the risks benefits and alternatives of vaginal versus repeat section. After questions were answered patient agreed to a section.
--- NOTE | 2022-01-06 19:15 | P.OP ---
Date of Procedure: 01/06/22 Preoperative Diagnosis: 1. at 35 weeks and 3 days 2. Previous section 3. Placental abruption Postoperative Diagnosis: 1. at 35 weeks and 3 days 2. Previous section 3. Placental abruption Procedure(s) Performed: Repeat low transverse Anesthesia: spinal Surgeon: Maryana Campos Entry Rep #1: Sena Crowell Estimated Blood Loss (ml): 730 IV fluids (ml): 500 Urine output (ml): 50 Pathology: other (Placenta) Condition: stable Disposition: floor Indications for Procedure: Please see dictated H&P for indications for procedure Operative Findings: Viable male, Apgars 8, 9, weight 4 lbs. 13 oz. Normal uterus, tubes, ovaries. When the placenta came out there was a clot where the placenta had been attached to the fundus. Description of Procedure: Patient was taken to the operating room where spinal anesthesia was found be adequate. She was prepped and draped in normal sterile fashion in dorsal supine position with a leftward tilt. Pfannenstiel skin incision was made the scalpel and carried through to the underlying layer of fascia with the scalpel. Fascia was incised in midline and carried bilaterally with the Earl scissors. The superior aspect of the fascial incision was grasped with Obed clamps elevated and the underlying rectus muscles dissected off with the Earl's. Attention was then turned to inferior aspect of same incision which in a similar fashion was grasped tented up and the underlying rectus muscles dissected off with the Earl's. The rectus muscles were the midline and the peritoneum was identified tented up and entered sharply with the scalpel. The incision was extended superiorly and inferiorly with good visualization of the bladder. The bladder blade was inserted and the vesicouterine peritoneum was incised the Metzenbaums then carried bilaterally and bladder flap created digitally. A low transverse incision was then made on the uterus with the scalpel. This was carried bilaterally and digital manner. 's head delivered atraumatically, nose and mouth bulb suctioned, cord clamped and cut, handed off to waiting nurses. Apgars 8,9, weight 4 lbs. 13 oz. Placenta delivered manually, intact with three-vessel cord. The uterus is exteriorized and cleared of all clots and debris. The uterine incision was closed with 0 Vicryl in a running locked fashion. Second layer of the same sutures used in imbricating fashion to obtain excellent hemostasis. Both ovaries and tubes appeared normal. The uterus was attempted to be placed back into the abdomen. At this time, a blood vessel in the left broad ligament started to bleed. The uterus was taken out again pressure was applied. I grasped the blood vessel with a hemostat and a f [id number] stitch was done in within the broad ligament, careful to avoid the fallopian tube. FloSeal was then applied and Surgicel to wrap the area. Uterus was then placed back into the abdomen. The peritoneum was reapproximated using 2-0 Vicryl in a running fashion. The muscles were reapproximated using 2- 0 Vicryl in interrupted fashion. The fascia was reapproximated using 0 Vicryl in a running fashion. The subcutaneous tissues closed with 3-0 Vicryl running fashion. The skin was closed yenifer. Patient tolerated the procedure well, sponge and instrument counts were correct times 2 and she was taken to the recovery room in stable condition.
[2022-01-06] MEDS ORDERED: MORPHINE SULFATE 2 MG/ML SYRINGE IVP PRN (21:24)
[2022-01-07] MEDS: KETOROLAC 15 MG/ML 1 ML VIAL IVP SCH ×3 (00:17→11:39)
[2022-01-07] MEDS: ACETAMINOPHEN TAB 500 MG TAB PO SCH ×5 (00:18→20:04)
[2022-01-07] MEDS: SENNOSIDES-DOCUSATE SODIUM 1 EACH TAB PO SCH ×3 (00:18→20:04)
[2022-01-07 05:33] LABS: Basophils % (A) 0 %; Eosinophils % (A) 0 %; HCT 30.7 % (34.0-46.0); Lymphocytes % (A) 7 %; MCV 96.9 fL (80.0-100.0); Mean Platelet Volume 11.2; Monocytes # (A) 0.5 k/uL (0-1.0); Monocytes % (A) 3 %; Neutrophils # (A) 13.3 k/uL (1.3-7.7); Neutrophils % (A) 89 %; Platelet Count 145 k/uL (150-450); RBC 3.17 m/uL (3.80-5.40); RDW 13.4 % (11.5-15.5); WBC 14.9 k/uL (3.8-10.6)
[2022-01-07 05:52] LABS: HGB 10.4 gm/dL (11.4-16.0)
[2022-01-07] MEDS: diphenhydrAMINE 25 MG CAP PO PRN ×2 (07:35→14:00)
--- NOTE | 2022-01-07 08:10 | P.PN ---
Progress Note - Text Date: 01/07/2022 Time: 07:03 The patient is status post section Vital signs stable VAS:0-10 Patient has no complaints of pain. The patient incurred some minimal itching yesterday, this itching is now subsiding. Pain meds to be managed by service.
--- NOTE | 2022-01-07 08:48 | P.PNOBGPC ---
Subjective - Subjective Principal diagnosis: Status post repeat postoperative day #1 Interval history: Patient is doing well. She is ambulating. Lochia is minimal. Pain is fairly well controlled at this time. She denies any flatus or bowel movement yet. Patient reports: Reports appetite normal, Reports voiding normally, Reports pain well controlled, Reports ambulating normally : doing well (In level I nursery) Objective - Vital Signs Latest vital signs: Vital Signs Temp Pulse Resp BP Pulse Ox 01/07/22 04:00 97.9 F 68 14 115/66 99 01/07/22 00:00 97.9 F 71 14 99/56 99 01/06/22 20:40 97.7 F 58 L 14 97/54 01/06/22 20:10 97.3 F L 66 14 103/51 01/06/22 19:35 61 93/50 01/06/22 19:20 61 94/59 01/06/22 19:05 58 L 101/59 01/06/22 18:50 98.0 F 76 18 103/58 01/06/22 17:43 98.0 F 126 H 18 122/80 100 Intake and Output 01/06/22 01/07/22 01/07/22 22:59 06:59 14:59 Output Total 1012 490 Balance -1012 -490 Output: Urine 75 490 Output, Quantitative 937 Blood Loss Other: Voiding Method Indwelling Catheter Weight 60.328 kg - Exam Extremities: Present: normal. Absent: tenderness Abdomen: Present: normal appearance, soft (Positive bowel sounds 4). Absent: distention, tenderness Incision: Present: normal, dry, intact. Absent: erythematous Uterus: Present: normal, firm. Absent: tenderness - Labs Labs: Abnormal Lab Results - Last 24 Hours (Table) 01/06/22 01/07/22 Range/Units 17:30 05:04 WBC 12.3 H 14.9 H (3.8-10.6) k/uL RBC 3.17 L (3.80-5.40) m/uL Hgb 10.4 L D (11.4-16.0) gm/dL Hct 30.7 L (34.0-46.0) % Plt Count 145 L (150-450) k/uL Neutrophils # 9.0 H 13.3 H (1.3-7.7) k/uL Assessment and Plan Assessment: Status post stat repeat section at 35 weeks postoperative day #1 Status post placental abruption Plan: Continue with postoperative and care. Will advance diet as tolerated after flatus.
[2022-01-07] MEDS: IBUPROFEN 600 MG TAB PO SCH ×2 (18:20→23:33)
[2022-01-08] MEDS: LACTATED RINGERS 1,000 ML IV SCH (00:03)
[2022-01-08 00:06] VITALS: RESP 16
[2022-01-08] MEDS: ACETAMINOPHEN TAB 500 MG TAB PO SCH ×3 (03:46→18:25)
[2022-01-08] MEDS: IBUPROFEN 600 MG TAB PO SCH ×3 (07:59→21:22)
[2022-01-08] MEDS: SENNOSIDES-DOCUSATE SODIUM 1 EACH TAB PO SCH ×2 (08:00→22:11)
--- NOTE | 2022-01-08 08:50 | P.PNOBGPC ---
Subjective - Subjective Principal diagnosis: Status post repeat section postoperative day #2 Interval history: Patient is doing well. She has ambulated. She is passing flatus and bowel movement. Her pain is well-controlled. Lochia has been minimal. She is working on breast-feeding. Patient reports: Reports appetite normal, Reports voiding normally, Reports pain well controlled, Reports ambulating normally : doing well (In level I nursery) Objective - Vital Signs Latest vital signs: Vital Signs Temp Pulse Resp BP Pulse Ox 01/08/22 08:00 88 16 119/69 01/08/22 04:00 98.3 F 73 16 138/82 01/08/22 00:00 98.0 F 98 16 105/66 01/07/22 20:00 97.8 F 108 H 16 103/66 01/07/22 12:00 97.7 F 86 18 107/57 99 01/07/22 09:10 98.7 F 73 18 99/68 98 Intake and Output 01/07/22 01/08/22 01/08/22 22:59 06:59 14:59 Other: Voiding Method Indwelling Catheter # Voids 2 2 1 # Bowel Movements 1 - Exam Extremities: Present: normal. Absent: tenderness, edema Abdomen: Present: normal appearance, soft. Absent: distention, tenderness Incision: Present: normal, dry, intact. Absent: erythematous Uterus: Present: normal, firm. Absent: tenderness Assessment and Plan Assessment: Status post stat repeat section at 35 weeks postoperative day #2 Status post placental abruption Plan: Continue with care and postoperative care today. Will recheck CBC tomorrow morning. Patient would like to go home tomorrow evening.
[2022-01-09] MEDS: ACETAMINOPHEN TAB 500 MG TAB PO SCH ×3 (00:30→13:31)
[2022-01-09] MEDS: IBUPROFEN 600 MG TAB PO SCH ×2 (03:35→11:50)
[2022-01-09 07:03] LABS: Basophils % (A) 0 %; Eosinophils # (A) 0.5 k/uL (0-0.7); Eosinophils % (A) 6 %; HCT 30.2 % (34.0-46.0); HGB 9.9 gm/dL (11.4-16.0); Lymphocytes # (A) 1.1 k/uL (1.0-4.8); Lymphocytes % (A) 14 %; MCH 32.5 pg (25.0-35.0); MCHC 32.7 g/dL (31.0-37.0); MCV 99.4 fL (80.0-100.0); Mean Platelet Volume 10.9; Monocytes # (A) 0.2 k/uL (0-1.0); Monocytes % (A) 3 %; Neutrophils # (A) 5.8 k/uL (1.3-7.7); Neutrophils % (A) 75 %; Platelet Count 157 k/uL (150-450); RBC 3.03 m/uL (3.80-5.40); RDW 13.7 % (11.5-15.5); WBC 7.7 k/uL (3.8-10.6)
--- NOTE | 2022-01-09 07:31 | P.DS ---
Providers Date of admission: 01/06/22 17:30 Expected date of discharge: 01/09/22 Attending physician: Iqra Rojas Primary care physician: Stated None Hospital Course: This is a 31-year-old female 5 para 2 at 35-3/7 weeks who presented with sudden onset of vaginal bleeding. She was diagnosed with probable placental abruption and underwent an emergency repeat low transverse section under spinal Duramorph anesthesia on 01/06/2022. She delivered a viable male with scores of 8 at 1 minute and 9 at 5 minutes and infant weight of 4 lbs. 13 oz. Her course has been essentially uncomplicated. She is pumping her breast milk. Lochia has been minimal. Pain is well-controlled with ibuprofen and Tylenol. She is passing flatus and bowel movements. Her baby is in level I nursery. Vital signs are stable. Abdomen is soft with fundus firm and nontender. Extremities show negative Homans. Impression is status post repeat low transverse section day #3. Plan is to discharge home later today. Routine postoperative and instructions are given. She is advised follow-up in the office in 1 week for a postoperative check and in 6 weeks for check. She will be given a prescription for ibuprofen and has a breast pump at home. She is advised to call the office if she has any further questions or concerns prior to her appointment time. She is also encouraged to continue taking her vitamins and may add some extra iron if necessary. Procedures: Urgent repeat low transverse section on 01/06/2022 with delivery of a viable male infant Patient Condition at Discharge: Stable Plan - Discharge Summary New Discharge Prescriptions: New Ibuprofen [Motrin] 600 mg PO QID #60 tab Continue Pnv,Calcium 72/Iron/Folic Acid [ Plus Tablet] 1 tab PO DAILY Discontinued Hydroxyprogesterone Caproat/Pf [Tessie 275 mg/1.1 ml Autoinjct] 275 mg SQ WEEKLY Aspirin 81 mg PO DAILY Discharge Medication List Pnv,Calcium 72/Iron/Folic Acid [ Plus Tablet] 1 tab PO DAILY 08/16/15 [History] Ibuprofen [Motrin] 600 mg PO QID #60 tab 01/09/22 [Rx] Follow up Appointment(s)/Referral(s): Iqra Rojas DO [Doctor of Osteopathic Medicine] - 02/18/22 3:30 pm (Post OP 05-12-2022 at 9:00) Activity/Diet/Wound Care/Special Instructions: Instructions 1. Do not begin any exercise program for 3 weeks. 2. Do not resume sexual relations for 3 weeks or longer if uncomfortable. 3. You may take tub baths or showers at any time. 4. You may use tampons if desired after 3 weeks. 5. Keep the area of episiotomy (stitches) clean and dry. 6. If you are not nursing, wear a good fitting, supportive bra during the day and limit fluid intake for at least 1 week to prevent breast engorgement. 7. Call the office, [phone], within the next week to make appointment for your 6 week checkup if it has not already been made. 8. Report any of the following occurrences to the doctor promptly: a. Heavy, excessive bleeding b. Chills, fever c. Burning or frequency of urination d. Pain or redness and breasts if nursing e. Increasing pain or swelling in episiotomy (stitches). In addition to the above instructions, the following additional should be followed: 1. No heavy lifting or straining (exercising) until after 6 week checkup. 2. Keep abdominal incision clean and dry: You may wear a dressing if more comfortable. 3. Make office appointment for 10 days after going home or as instructed by her doctor. Discharge Disposition: HOME SELF-CARE
[2022-01-09 09:23] VITALS: BP 132/72; PULSE 92; TEMP 98.5
[2022-01-09] MEDS: SENNOSIDES-DOCUSATE SODIUM 1 EACH TAB PO SCH (11:51)
== END 2022-01-09 13:35 | disposition home or self-care (01) | DRG 786 ==
LOC: FBPOP 17:10 → 4FBP 17:30
PROVIDERS: ADMIT Obstetrics & Gynecology; ATTEND Obstetrics & Gynecology
PROC: 4A0HXCZ Measurement of Products of Conception, Cardiac Rate, External Approach (ICD-10-PCS; 2022-01-06)
PROC: 10D00Z1 Extraction of Products of Conception, Low, Open Approach (ICD-10-PCS; principal; 2022-01-06 18:27)
DX: O34.211 Maternal care for low transverse scar from previous cesarean delivery (principal); O76 Abnormality in fetal heart rate and rhythm complicating labor and delivery; O45.93 Premature separation of placenta, unspecified, third trimester; O60.14X0 Preterm labor third trimester with preterm delivery third trimester, not applicable or unspecified; D68.61 Antiphospholipid syndrome; O99.12 Other diseases of the blood and blood-forming organs and certain disorders involving the immune mechanism complicating childbirth; O99.73 Diseases of the skin and subcutaneous tissue complicating the puerperium; L29.9 Pruritus, unspecified; Z37.0 Single live birth; Z3A.35 35 weeks gestation of pregnancy; Z79.82 Long term (current) use of aspirin
CPT/HCPCS: 59025; 85025; 85461; 86850; 86870; 86880; 86900; 86901; 96361; 96365; 99215

== ENCOUNTER 2022-01-28 08:02 | Inpatient (IN) | payer MEDICAID ==
[2022-01-28] MEDS: fentaNYL (PF) 50 MCG/ML 2 ML AMP IVP ONE ×2 (09:09→21:18)
[2022-01-28] MEDS ORDERED: IBUPROFEN 600 MG TAB PO STA (09:09)
--- NOTE | 2022-01-28 11:51 | ED ---
General Adult HPI - General Chief complaint: Chest Pain Stated complaint: Mastitis Time Seen by Provider: 01/28/22 08:52 Source: patient, RN notes reviewed Mode of arrival: ambulatory Limitations: no limitations - History of Present Illness Initial comments: This a 31-year-old female presents emergency Department chief complaint right breast infection. Patient states she's been dealing with this for several days. Placed on amoxicillin by Dr. Rojas. Patient states that she diagnosed with mastitis. Patient states that it seems to be getting worse she's had increasing pain. No reported fever. Patient states that she was trying to breast-feed. She still has been pumping. - Related Data Home Medications Medication Instructions Recorded Confirmed Pnv,Calcium 72/Iron/Folic Acid 1 tab PO DAILY 08/16/15 01/28/22 [ Plus Tablet] Aspirin EC [Ecotrin Low Dose] 81 mg PO DAILY 01/28/22 01/28/22 Allergies Allergy/AdvReac Type Severity Reaction Status Date / Time No Known Allergies Allergy Verified 01/28/22 10:27 Review of Systems ROS Statement: Those systems with pertinent positive or pertinent negative responses have been documented in the HPI. ROS Other: All systems not noted in ROS Statement are negative. Past Medical History Past Medical History: No Reported History Additional Past Medical History / Comment(s): Patient has known positive antiphospholipid, mastitis History of Any Multi-Drug Resistant Organisms: None Reported Past Surgical History: No Surgical Hx Reported Additional Past Surgical History / Comment(s): wisdom teeth pulled; patient had a D&C. Past Anesthesia/Blood Transfusion Reactions: No Reported Reaction Past Psychological History: No Psychological Hx Reported Smoking Status: Never smoker Past Alcohol Use History: None Reported Past Drug Use History: None Reported - Past Family History Mother Family Medical History: No Reported History Father Family Medical History: No Reported History General Exam Limitations: no limitations General appearance: alert, in no apparent distress Head exam: Present: atraumatic, normocephalic, normal inspection Eye exam: Present: normal appearance, PERRL, EOMI. Absent: scleral icterus, conjunctival injection, periorbital swelling Respiratory exam: Present: normal lung sounds bilaterally. Absent: respiratory distress, wheezes, rales, rhonchi, stridor Cardiovascular Exam: Present: regular rate, normal rhythm, normal heart sounds. Absent: systolic murmur, diastolic murmur, rubs, gallop, clicks Skin exam: Present: other (Right breast surgery was a large area of erythema surrounding the Louie, region and right lateral breast is very firm, tender with palpation) Course Vital Signs 01/28/22 08:12 Temperature 98.1 F Pulse Rate 95 Respiratory 18 Rate Blood Pressure 128/63 O2 Sat by Pulse 98 Oximetry Medical Decision Making - Medical Decision Making Patient reevaluated by Dr. Sorenson in the emergency department felt that there is an abscess. Patient taken to the OR for incision and drainage patient was started on antibiotics. Blood culture, was were drawn. Disposition Clinical Impression: Abscess of right breast, Cellulitis of right breast Disposition: ADMITTED IP TO THIS HOSP Condition: Fair Referrals: Dom Ren MD [Primary Care Provider] - 1-2 days Time of Disposition: 12:35
--- NOTE | 2022-01-28 12:04 | USB ---
Clinical finding. Indicated Problems 3 weeks, red, swollen right breast, already on antibiotic's. Technique Method: Targeted. Findings The lower outer quadrant of the right breast and the axilla of the right breast were scanned. Heterogeneous tissue with increased vascularity seen from 6-9 on the right. No solid or cystic masses are identified. The area in question is very heterogenous. No discrete mass, galactocele, or abscess is identified. Infection is favored. Close monitoring is recommended please follow-up with Physician. Probably benign, BI-RAD 3 Management Clinical management of the right breast. MTDD
[2022-01-28] MEDS ORDERED: HYDROmorphone 0.5 MG/0.5 ML SYRINGE IVP PRN (12:27)
[2022-01-28] MEDS ORDERED: LACTATED RINGERS 1,000 ML IV ONE ×2 (12:27→20:46)
[2022-01-28] MEDS ORDERED: VANCOMYCIN IV PER PHARMACY 1 EACH MISC MISCELLANE SCH (12:30)
--- NOTE | 2022-01-28 12:38 | P.GSHP ---
History of Present Illness H&P Date: 01/28/22 Chief Complaint: Right breast abscess with cellulitis 31-year-old female recently delivered a healthy 35-week-old infant male. Presents to the ER with a one-week history of right breast pain and redness. Patient has been on amoxicillin for the last week without improvement. No fevers. Pain increasing. No drainage. She has been pumping bilaterally. Ultrasound done in the ER this morning shows no definite abscess. Patient states there is an area at 8:00 right breast that is raised. This is the area where the pain and redness first was identified. - Review of Systems Comment: The patient denies any acute changes in vision or hearing, no dysphagia or odynophagia, no chest pain or shortness of breath, no dysuria or hematuria, no headache, no runny nose, no rectal bleeding or melena, no unexplained weight loss Past Medical History Past Medical History: No Reported History Additional Past Medical History / Comment(s): Patient has known positive antipho spholipid, mastitis History of Any Multi-Drug Resistant Organisms: None Reported Past Surgical History: No Surgical Hx Reported Additional Past Surgical History / Comment(s): wisdom teeth pulled; patient had a D&C. Past Anesthesia/Blood Transfusion Reactions: No Reported Reaction Past Psychological History: No Psychological Hx Reported Smoking Status: Never smoker Past Alcohol Use History: None Reported Past Drug Use History: None Reported - Past Family History Mother Family Medical History: No Reported History Father Family Medical History: No Reported History Medications and Allergies Home Medications Medication Instructions Recorded Confirmed Type Pnv,Calcium 72/Iron/Folic Acid 1 tab PO DAILY 08/16/15 01/28/22 History [ Plus Tablet] Aspirin EC [Ecotrin Low Dose] 81 mg PO DAILY 01/28/22 01/28/22 History Allergies Allergy/AdvReac Type Severity Reaction Status Date / Time No Known Allergies Allergy Verified 01/28/22 10:27 Surgical - Exam Vital Signs Temp Pulse Resp BP Pulse Ox 98.1 F 95 18 128/63 98 01/28/22 08:12 01/28/22 08:12 01/28/22 08:12 01/28/22 08:12 01/28/22 08:12 Physical exam: General: Well-developed, well-nourished HEENT: Normocephalic, sclerae nonicteric Right breast: Area of erythema right breast extending from lower outer quadrant to the nipple and periareolar location. Size of erythema 12 x 10 cm. Area of fluctuance with thin skin and elevation 8:00 2 x 1 cm. Tenderness diffusely through the erythematous region. Left breast: Deferred Abdomen: Nontender, nondistended Extremities: No edema Neuro: Alert and oriented Assessment and Plan (1) Breast abscess Narrative/Plan: 31-year-old female with right breast abscess and associated mastitis. Ult rasound results reviewed with radiology. Clinically there is a fluctuant area measuring 2 x 1 cm with very thin overlying skin and appears even slightly ischemic appearing. Options discussed with patient. Options of aspiration versus incision and drainage versus observation with change in antibiotic course discussed. We have decided to proceed with incision and drainage at this time. This will be performed in the operating room because of the exquisite tenderness. Cultures will be obtained. Begin IV vancomycin at this time. Keep nothing by mouth for now. Current Visit: Yes Status: Acute Code(s): N61.1 - ABSCESS OF THE BREAST AND NIPPLE SNOMED Code(s): 51168307
[2022-01-28] MEDS ORDERED: VANCOMYCIN 1,000 MG in SODIUM CHLORIDE 0.9% 250 ML IVPB STA (12:47)
[2022-01-28 12:55] LABS: Basophils # (A) 0.1 k/uL (0-0.2); Basophils % (A) 1 %; Eosinophils # (A) 1.9 k/uL (0-0.7); Eosinophils % (A) 13 %; HCT 32.8 % (34.0-46.0); HGB 10.7 gm/dL (11.4-16.0); Lymphocytes # (A) 1.8 k/uL (1.0-4.8); Lymphocytes % (A) 12 %; MCH 30.3 pg (25.0-35.0); MCHC 32.7 g/dL (31.0-37.0); Mean Platelet Volume 8.7; Monocytes # (A) 0.7 k/uL (0-1.0); Monocytes % (A) 5 %; Neutrophils % (A) 68 %; Platelet Count 305 k/uL (150-450); Poikilocytosis Slight; RBC 3.54 m/uL (3.80-5.40); RDW 12.7 % (11.5-15.5); WBC 14.7 k/uL (3.8-10.6)
[2022-01-28 13:19] LABS: MCV 92.9 fL (80.0-100.0)
[2022-01-28 13:22] LABS: African American GFR (CKD) >90 (>60 ml/min/1.73 sqM); Anion Gap 11 mmol/L; Blood Urea Nitrogen 11 mg/dL (7-17); Calcium 8.8 mg/dL (8.4-10.2); Carbon Dioxide 24 mmol/L (22-30); Chloride 104 mmol/L (98-107); Glucose 85 mg/dL (74-99); Non-African American GFR(CKD) >90 (>60 ml/min/1.73 sqM); Potassium 3.9 mmol/L (3.5-5.1); Sodium 139 mmol/L (137-145)
[2022-01-28] MEDS: ACETAMINOPHEN TAB 325 MG TAB PO PRN (13:31)
[2022-01-28] MEDS: KETOROLAC 15 MG/ML 1 ML VIAL IVP SCH ×2 (17:13→22:30)
[2022-01-28] MEDS ORDERED: LIDOCAINE 2% INJ 20 MG/ML (2 ML VIAL) ONE (20:09)
[2022-01-28] MEDS ORDERED: PROPOFOL 10 MG/ML 20 ML VIAL IV ONE (20:09)
[2022-01-28] MEDS ORDERED: diphenhydrAMINE 50 MG/ML 1 ML VIAL ONE (20:09)
[2022-01-28] MEDS ORDERED: ONDANSETRON 4 MG/2 ML VIAL ONE (20:09)
[2022-01-28] MEDS ORDERED: fentaNYL (PF) 50 MCG/ML 2 ML AMP ONE (20:09)
[2022-01-28] MEDS ORDERED: IV FLUID CONTINUATION 1,000 ML IV ONE ×2 (20:14)
[2022-01-28] MEDS ORDERED: BUPIVACAINE (PF) 0.25% 30 ML VIAL SQ ONE ×2 (20:26)
[2022-01-28] MEDS ORDERED: ONDANSETRON 4 MG/2 ML VIAL IVP PRN (21:03)
--- NOTE | 2022-01-28 21:07 | P.OP ---
Date of Procedure: 01/28/22 Procedure(s) Performed: PREOPERATIVE DIAGNOSIS: Right breast abscess POSTOPERATIVE DIAGNOSIS: Multiloculated right breast abscess PROCEDURE: Incision and drainage multiloculated right breast abscess SURGEON: Delta EBL: 10 mL ANESTHESIA: Local plus sedation COMPLICATIONS: None OPERATIVE PROCEDURE: Patient sedated per anesthesia. Right breast prepped and draped sterilely. Incision sites were localized. The patient had a fluctuant area at the 8:00 location. A 1 cm radial incision was made overlying that and a purulent cavity was encountered. Approximately 15-20 mL of pus was evacuated. Cultures were taken. Initial inspection of the abscess cavity did not demonstrate any definite tunneling in any particular direction. The patient since our examination earlier today however had 2 small 1.5 cm areas of fluctuance along the areola border at 8:00 and 10:00. A sterile needle was used to aspirate both sites and pus was again identified. I did make counter incisions at those 2 locations measuring 1 cm or less. Purulence was evacuated. Careful probing of both sites did reveal that these connected with one another beneath the skin. The 8:00 periareolar abscess did in fact connected to the 8:00 breast incision that we had previously made. All 3 areas were copiously irrigated with saline. No further tracking or purulent pockets were found. I did take a small [place] drain from the 8:00 periareolar to the 8:00 initial incision site and this was sutured back to itself using a silk stitch. I also used a small Alexa drain between the 2 periareolar incision sites and this was stitched back to itself externally as well. The excess drain was excised. Sterile dressings were then applied. DISPOSITION: Stable to recovery room. Continue IV vancomycin for possible MRSA. Consultation to netsuite consultant place.
[2022-01-28] MEDS ORDERED: fentaNYL (PF) 50 MCG/ML 2 ML AMP IVP ONE ×2 (21:09→21:18)
[2022-01-28] MEDS: VANCOMYCIN 1,000 MG in SODIUM CHLORIDE 0.9% 250 ML IVPB SCH (22:29)
[2022-01-29] MEDS: HYDROcodone/APAP 5-325MG 1 EACH TAB PO PRN ×3 (02:01→22:02)
[2022-01-29] MEDS: KETOROLAC 15 MG/ML 1 ML VIAL IVP SCH ×4 (05:56→23:39)
[2022-01-29] MEDS: VANCOMYCIN 1,000 MG in SODIUM CHLORIDE 0.9% 250 ML IVPB SCH ×3 (05:56→23:41)
[2022-01-29 06:39] LABS: Basophils # (A) 0.1 k/uL (0-0.2); Basophils % (A) 0 %; Eosinophils # (A) 1.4 k/uL (0-0.7); Eosinophils % (A) 11 %; HCT 29.2 % (34.0-46.0); HGB 9.6 gm/dL (11.4-16.0); Hypochromasia Slight; Lymphocytes # (A) 1.4 k/uL (1.0-4.8); Lymphocytes % (A) 11 %; MCH 31.2 pg (25.0-35.0); MCHC 32.8 g/dL (31.0-37.0); MCV 95.2 fL (80.0-100.0); Mean Platelet Volume 8.8; Monocytes # (A) 0.8 k/uL (0-1.0); Monocytes % (A) 6 %; Neutrophils # (A) 9.4 k/uL (1.3-7.7); Neutrophils % (A) 71 %; Platelet Count 289 k/uL (150-450); Poikilocytosis Slight; RBC 3.07 m/uL (3.80-5.40); RDW 12.8 % (11.5-15.5); WBC 13.3 k/uL (3.8-10.6)
[2022-01-29 06:52] LABS: Potassium 4.1 mmol/L (3.5-5.1)
[2022-01-29 06:53] LABS: ALT 12 U/L (4-34); AST 16 U/L (14-36); African American GFR (CKD) >90 (>60 ml/min/1.73 sqM); Albumin 2.9 g/dL (3.5-5.0); Albumin/Globulin Ratio 1.1; Alkaline Phosphatase 94 U/L (38-126); Anion Gap 9 mmol/L; Blood Urea Nitrogen 14 mg/dL (7-17); Carbon Dioxide 23 mmol/L (22-30); Chloride 105 mmol/L (98-107); Globulin 2.7 g/dL; Glucose 71 mg/dL (74-99); Non-African American GFR(CKD) >90 (>60 ml/min/1.73 sqM); Sodium 137 mmol/L (137-145); Total Bilirubin 0.4 mg/dL (0.2-1.3); Total Protein 5.6 g/dL (6.3-8.2)
[2022-01-29] MEDS ORDERED: VANCOMYCIN TROUGH DUE 1 EACH MISC MISCELLANE ONE (13:00)
--- NOTE | 2022-01-29 14:42 | P.PN ---
Subjective Progress Note Date: 01/29/22 CHIEF COMPLAINT: Right breast abscess HISTORY OF PRESENT ILLNESS: Postoperative day #1 status post incision and drainage multiloculated right breast abscess. Patient reports her pain is controlled. Denies any nausea vomiting. She is having difficulty with applying the breast pump to the breast. The regional sales consultant will be back to help patient. Patient tolerated regular diet this morning. She's afebrile. Patient did have some tachycardia heart rate 115 down to 93. White count is trending down from 14-13.3 Hgb down form 10.7 to 9.6 platelets 289. Sodium 137 potassium 4.1 creatinine 0.67 cultures are pending PHYSICAL EXAM: VITAL SIGNS: Reviewed. GENERAL: Well-developed in no acute distress. HEENT: No sclera icterus. Extraocular movements grossly intact. Moist buccal mucosa. Head is atraumatic, normocephalic. ABDOMEN: Soft. Nondistended. Nontender. NEUROLOGIC: Alert and oriented. Cranial nerves II through XII grossly intact. Breast: Erythema of the right breast lower outer quadrant. Area has some firmness. Dodge drain in place. Serosanguineous drainage noted on the dressing pad. ASSESSMENT: 1. Status post incision and drainage multiloculated right breast abscess PLAN: -Continue IV vancomycin -Follow up on culture results -Continue pain medication as needed -Continue regular diet -Continue supportive care -project consultant will be back to assist patient Physician Chief Librarian Circulation Department note has been reviewed by physician. Signing provider agrees with the documented findings, assessment, and plan of care. I have personally seen and examined the patient, reviewed the WATERMELON INSPECTOR /PAs history, exam and MDM and agree with the assessment and plan as written. Based on total visit time, I have performed more than 50% of the visit. As above: Patient says her pain is improved. Her erythema seen slightly better. The induration of the breast unchanged. She is having tenderness at the 8:00 lateral breast incision site. White blood cell count slightly improved. Spoke with Phil hyman. Gram stain negative thus far and cultures are pending. Patient was seen by regional sales consultant. Manual expression will be performed apparently for now as she cannot get a good seal with the pump. Clinical scenario discussed with patient. Continue IV antibiotics in the form of vancomycin. We'll consult infectious disease as well. Objective - Vital Signs Vital signs: Vital Signs Temp 98.1 F 01/29/22 07:37 Pulse 93 01/29/22 07:37 Resp 15 01/29/22 07:37 BP 105/68 01/29/22 07:37 Pulse Ox 97 01/29/22 07:37 FiO2 Intake & Output 01/28/22 01/29/22 01/29/22 18:59 06:59 18:59 Intake Total 1750 Output Total 10 Balance 1740 Weight 52.163 kg Intake: IV 800 Intake, IV Titration 500 Amount Vancomycin 1,000 mg In 500 Sodium Chloride 0.9% 250 ml @ 125 mls/hr IVPB Q8H [facility] Rx#:[id number] Oral 450 Output: Estimated Blood Loss 10 Other: Voiding Method Toilet Toilet # Voids 1 3 - Labs CBC & Chem 7: 01/29/22 05:56 01/29/22 05:56 Labs: Abnormal Lab Results - Last 24 Hours (Table) 01/28/22 01/28/22 01/29/22 Range/Units 12:44 12:44 05:56 WBC 14.7 H (3.8-10.6) k/uL RBC 3.54 L (3.80-5.40) m/uL Hgb 10.7 L (11.4-16.0) gm/dL Hct 32.8 L (34.0-46.0) % Neutrophils # 10.0 H (1.3-7.7) k/uL Eosinophils # 1.9 H (0-0.7) k/uL Glucose 71 L (74-99) mg/dL Plasma Lactic Acid Alfonso 0.6 L (0.7-2.0) mmol/L Calcium 8.0 L (8.4-10.2) mg/dL Total Protein 5.6 L (6.3-8.2) g/dL Albumin 2.9 L (3.5-5.0) g/dL 01/29/22 Range/Units 05:56 WBC 13.3 H (3.8-10.6) k/uL RBC 3.07 L (3.80-5.40) m/uL Hgb 9.6 L (11.4-16.0) gm/dL Hct 29.2 L (34.0-46.0) % Neutrophils # 9.4 H (1.3-7.7) k/uL Eosinophils # 1.4 H (0-0.7) k/uL Glucose (74-99) mg/dL Plasma Lactic Acid Alfonso (0.7-2.0) mmol/L Calcium (8.4-10.2) mg/dL Total Protein (6.3-8.2) g/dL Albumin (3.5-5.0) g/dL Microbiology - Last 24 Hours (Table) 01/28/22 20:36 Gram Stain - Preliminary Breast - Right Wound Culture - Preliminary 01/28/22 20:36 Anaerobic Culture - Preliminary Breast - Right
[2022-01-29] MEDS: ACETAMINOPHEN TAB 325 MG TAB PO PRN (16:02)
[2022-01-29] MEDS: AMPICILLIN-SULBACTAM 3 GM in SODIUM CHLORIDE 0.9% 100 ML IVPB SCH ×2 (18:11→23:40)
[2022-01-29] MEDS: HEPARIN SODIUM,PORCINE/PF 5,000 UNIT/0.5 ML SYRINGE SQ SCH (20:37)
--- NOTE | 2022-01-29 20:41 | CONS ---
CONSULTATION I am covering for Dr. Ren. DATE OF SERVICE: 01/29/2022 REASON FOR CONSULTATION: Advice regarding right breast abscess. HISTORY OF PRESENT ILLNESS: This 31-year-old woman without any significant past medical history was , admitted with significant breast abscess which was multiloculated and drained by Dr. Sorenson. Final cultures are pending. The patient was started on IV vancomycin. The patient has taken p.o. antibiotics as an outpatient in the form of amoxicillin. There is no history of any fever, rigors or chills. No history of headache, loss of consciousness, seizures. White count is elevated. PAST MEDICAL HISTORY: No significant medical illnesses. Recently . HOME MEDICATIONS: Reviewed. They include vitamins and Ecotrin 81 mg daily. ALLERGIES: NONE. FAMILY HISTORY: No history of heart disease or strokes. SOCIAL HISTORY: No history of smoking. REVIEW OF SYSTEMS: Fourteen-point review of systems negative. PHYSICAL EXAMINATION: Pulse 96, blood pressure 111/64, respirations 16. CHEST: Clear to auscultation. CARDIOVASCULAR: S1, S2 muffled. ABDOMEN: Soft, nontender. NERVOUS SYSTEM: Diffusely weak. EXAMINATION OF RIGHT BREAST: Status post incision and drainage. LABS: WBC 13.3, hemoglobin ntd. ASSESSMENT: 1. Right breast abscess, multiloculated, status post incision and drainage. 2. Increased white count. 3. Anemia. 4. Recently . RECOMMENDATIONS AND DISCUSSION: I recommend to continue current medications. The patient has a breast abscess, status post incision and drainage. Await final cultures. Patient was started on empiric antibiotics. The patient had failed outpatient treatment. Closely follow with Surgery and Infectious Disease. Further recommendations to follow. MMODL / IJN: [id number] / MTDD
--- NOTE | 2022-01-29 23:46 | P.CONS ---
History of Present Illness - Reason for Consult Consult date: 01/29/22 - History of Present Illness Patient is a 31-year-old female who is 2 weeks started having a problem with the right lateral breast swelling and redness concerning for possible mastitis the patient has been evaluated by PCP and has been treated with a course of oral amoxicillin however the patient did not have any improvement patient did have increasing swelling and redness to the right breast area along with the pain more of a dull aching 6-7 out of 10 no radiation, patient presented to the ER on arrival to the ER the patient was afebrile patient did have white count of 14.7 with a left shift creatinine was normal urine hCG was negative blood cultures obtained which are currently pending patient did have ultrasound of the breast with tissues heterogeneous tissue with a decrease vascularity from 6-9 o'clock on the right patient was taken to the OR and was noticed to have a right breast abscess status post I&D of the multiloculated right breast abscess culture has been obtained patient has been treated with IV vancomycin infectious disease was consulted today for further management of antibiotics Past Medical History Past Medical History: No Reported History Additional Past Medical History / Comment(s): Patient has known positive antiphospholipid, mastitis History of Any Multi-Drug Resistant Organisms: None Reported Past Surgical History: No Surgical Hx Reported Additional Past Surgical History / Comment(s): wisdom teeth pulled; patient had a D&C. Past Anesthesia/Blood Transfusion Reactions: No Reported Reaction Past Psychological History: No Psychological Hx Reported Smoking Status: Never smoker Past Alcohol Use History: None Reported Past Drug Use History: None Reported - Past Family History Mother Family Medical History: No Reported History Father Family Medical History: No Reported History Medications and Allergies Home Medications Medication Instructions Recorded Confirmed Type Pnv,Calcium 72/Iron/Folic Acid 1 tab PO DAILY 08/16/15 01/28/22 History [ Plus Tablet] Aspirin EC [Ecotrin Low Dose] 81 mg PO DAILY 01/28/22 01/28/22 History Allergies Allergy/AdvReac Type Severity Reaction Status Date / Time No Known Allergies Allergy Verified 01/28/22 10:27 Physical Exam Vitals: Vital Signs Temp Pulse Pulse Resp BP BP Pulse Ox 01/29/22 07:37 98.1 F 93 15 105/68 97 01/29/22 01:49 98.4 F 115 H 18 106/64 99 01/28/22 21:54 96 16 111/64 100 01/28/22 21:39 88 16 110/60 01/28/22 21:24 90 18 114/63 99 01/28/22 21:09 99 18 110/62 99 01/28/22 20:54 97.8 F 96 16 111/70 100 01/28/22 19:06 98.3 F 118 H 18 107/68 98 Intake and Output 01/29/22 01/29/22 01/29/22 06:59 14:59 22:59 Intake Total 950 160 Balance 950 160 Intake: Intake, IV Titration 500 160 Amount Lactated Ringers 1,000 ml 160 @ 100 mls/hr IV .Q10H [facility] Rx#:[id number] Vancomycin 1,000 mg In 500 Sodium Chloride 0.9% 250 ml @ 125 mls/hr IVPB Q8H [facility] Rx#:[id number] Oral 450 Other: Voiding Method Toilet # Voids 3 Results CBC & Chem 7: 01/29/22 05:56 01/29/22 05:56 Labs: Abnormal Lab Results - Last 24 Hours (Table) 01/29/22 01/29/22 Range/Units 05:56 05:56 WBC 13.3 H (3.8-10.6) k/uL RBC 3.07 L (3.80-5.40) m/uL Hgb 9.6 L (11.4-16.0) gm/dL Hct 29.2 L (34.0-46.0) % Neutrophils # 9.4 H (1.3-7.7) k/uL Eosinophils # 1.4 H (0-0.7) k/uL Glucose 71 L (74-99) mg/dL Calcium 8.0 L (8.4-10.2) mg/dL Total Protein 5.6 L (6.3-8.2) g/dL Albumin 2.9 L (3.5-5.0) g/dL Microbiology - Last 24 Hours (Table) 01/28/22 12:45 Blood Culture - Preliminary Blood No Growth after 24 hours 01/28/22 12:30 Blood Culture - Preliminary Blood No Growth after 24 hours 01/28/22 20:36 Gram Stain - Preliminary Breast - Right Wound Culture - Preliminary 01/28/22 20:36 Anaerobic Culture - Preliminary Breast - Right Assessment and Plan Plan: 1patient presented to hospital right breast pain swelling redness has been diagnosed with a right breast multiloculated abscess failing outpatient oral amoxicillin therapy. 2vancomycin pharmacy to dose target trough of 15 while watching kidney function and vancomycin trough closely. 3we will add Unasyn to cover for the possible gram-negative and anaerobes while waiting for the culture to finalize. Patient has been advised to stay in the hospital while at least waiting for the culture to be finalized. We will follow on clinical condition and cultures to further adjust medication if needed Thank you for this consultation will follow this patient along with you Time with Patient: Greater than 30
[2022-01-30] MEDS: HYDROcodone/APAP 5-325MG 1 EACH TAB PO PRN (03:25)
[2022-01-30] MEDS: KETOROLAC 15 MG/ML 1 ML VIAL IVP SCH ×2 (05:51→12:07)
[2022-01-30] MEDS: AMPICILLIN-SULBACTAM 3 GM in SODIUM CHLORIDE 0.9% 100 ML IVPB SCH (05:52)
[2022-01-30 07:12] LABS: African American GFR (CKD) >90 (>60 ml/min/1.73 sqM); Non-African American GFR(CKD) >90 (>60 ml/min/1.73 sqM)
[2022-01-30] MEDS: HEPARIN SODIUM,PORCINE/PF 5,000 UNIT/0.5 ML SYRINGE SQ SCH ×2 (08:29→20:18)
[2022-01-30] MEDS: VANCOMYCIN 1,000 MG in SODIUM CHLORIDE 0.9% 250 ML IVPB SCH ×2 (08:29→16:41)
[2022-01-30 09:02] LABS: Basophils # (A) 0.1 k/uL (0-0.2); Basophils % (A) 0 %; Eosinophils % (A) 19 %; HCT 30.3 % (34.0-46.0); HGB 9.8 gm/dL (11.4-16.0); Hypochromasia Slight; Lymphocytes # (A) 1.5 k/uL (1.0-4.8); Lymphocytes % (A) 9 %; MCH 30.9 pg (25.0-35.0); MCHC 32.3 g/dL (31.0-37.0); MCV 95.7 fL (80.0-100.0); Monocytes # (A) 0.8 k/uL (0-1.0); Monocytes % (A) 5 %; Neutrophils # (A) 10.3 k/uL (1.3-7.7); Neutrophils % (A) 65 %; Platelet Count 299 k/uL (150-450); RBC 3.17 m/uL (3.80-5.40); RDW 12.9 % (11.5-15.5); WBC 15.7 k/uL (3.8-10.6)
--- NOTE | 2022-01-30 10:19 | P.PN ---
Subjective Progress Note Date: 01/30/22 Principal diagnosis: Right breast abscess Patient says her pain is improved. She does not believe the redness is change much. The induration may be slightly better. She has noticed when she is expressing manually for milk that she sees some pus coming from the drain sites. She is afebrile. White blood cell count did increase today to 15,000. Cultures are showing presumptive MRSA. Objective - Vital Signs Vital signs: Vital Signs Temp 98.5 F 01/30/22 07:00 Pulse 90 01/30/22 07:00 Resp 16 01/30/22 07:00 BP 92/44 01/30/22 07:00 Pulse Ox 99 01/30/22 07:00 FiO2 Intake & Output 01/29/22 01/30/22 01/30/22 18:59 06:59 18:59 Intake Total 160 120 Balance 160 120 Intake: Intake, IV Titration 160 Amount Lactated Ringers 1,000 ml 160 @ 100 mls/hr IV .Q10H [facility] Rx#:[id number] Oral 120 Other: Voiding Method Toilet # Voids 2 - Exam Right breast incision sites with mild tenderness, small amount of serosanguineous drainage noted, erythema and induration persist may be minimally improved, tenderness is improved on exam - Labs CBC & Chem 7: 01/30/22 06:23 01/30/22 06:23 Labs: Abnormal Lab Results - Last 24 Hours (Table) 01/30/22 Range/Units 06:23 WBC 15.7 H (3.8-10.6) k/uL RBC 3.17 L (3.80-5.40) m/uL Hgb 9.8 L (11.4-16.0) gm/dL Hct 30.3 L (34.0-46.0) % Microbiology - Last 24 Hours (Table) 01/28/22 20:36 Gram Stain - Preliminary Breast - Right Wound Culture - Preliminary Presumptive MRSA 01/28/22 12:45 Blood Culture - Preliminary Blood No Growth after 24 hours 01/28/22 12:30 Blood Culture - Preliminary Blood No Growth after 24 hours Assessment and Plan (1) Abscess of right breast Narrative/Plan: 31-year-old female with multiloculated right breast abscess. Culture showing possible MRSA. Continue vancomycin and antibiotics per infectious disease. May shower today. Continue diet. Discussed if the patient's clinical condition does not improve or deteriorates we'll consider CT chest. She is agreeable. Current Visit: Yes Status: Acute Code(s): N61.1 - ABSCESS OF THE BREAST AND NIPPLE SNOMED Code(s): 95507939
[2022-01-30 11:02] LABS: Reticulocyte % 1.8 % (0.5-2.0)
[2022-01-30 11:06] LABS: Magnesium 1.8 mg/dL (1.6-2.3)
--- NOTE | 2022-01-30 19:33 | P.CONS ---
History of Present Illness - Reason for Consult Consult date: 01/30/22 Anti-phospholipid syndrone Requesting physician: Laura Hawthorne - Chief Complaint Right Breast Abscess - History of Present Illness Yaquelin is a pleasant 31 year old with apparent history of antiphospholipid syndrome who is recently post . She presents with Mastitis and is status post I and D with General surgery. We were asked to evaluate related to her potential history of hypercoagulabble state for prior testing cardiolipin IgM only elevation. She has had early <12 week miscarriage. No History of thrombus Review of Systems All systems: negative Constitutional: Reports as per HPI Past Medical History Past Medical History: No Reported History Additional Past Medical History / Comment(s): Patient has known positive antiphospholipid, mastitis History of Any Multi-Drug Resistant Organisms: None Reported Past Surgical History: No Surgical Hx Reported Additional Past Surgical History / Comment(s): wisdom teeth pulled; patient had a D&C. Past Anesthesia/Blood Transfusion Reactions: No Reported Reaction Past Psychological History: No Psychological Hx Reported Smoking Status: Never smoker Past Alcohol Use History: None Reported Past Drug Use History: None Reported - Past Family History Mother Family Medical History: No Reported History Father Family Medical History: No Reported History Medications and Allergies Home Medications Medication Instructions Recorded Confirmed Type Pnv,Calcium 72/Iron/Folic Acid 1 tab PO DAILY 08/16/15 01/28/22 History [ Plus Tablet] Aspirin EC [Ecotrin Low Dose] 81 mg PO DAILY 01/28/22 01/28/22 History Allergies Allergy/AdvReac Type Severity Reaction Status Date / Time No Known Allergies Allergy Verified 01/28/22 10:27 Physical Exam Vitals: Vital Signs Temp Pulse Resp BP Pulse Ox 01/30/22 07:00 98.5 F 90 16 92/44 99 01/30/22 02:20 98.0 F 100 15 106/69 98 01/29/22 20:31 98.5 F 101 H 16 101/62 99 Intake and Output 01/29/22 01/30/22 01/30/22 22:59 06:59 14:59 Other: Voiding Method Toilet Toilet # Voids 2 2 - Constitutional General appearance: cooperative, no acute distress - EENT Eyes: EOMI, PERRLA ENT: NA/AT - Neck Neck: normal ROM - Respiratory Respiratory: bilateral: CTA - Integumentary Integumentary: pale - Neurologic Neurologic: CNII-XII intact - Musculoskeletal Musculoskeletal: gait normal - Psychiatric Psychiatric: A&O x's 3, appropriate affect, intact judgment & insight Results CBC & Chem 7: 01/30/22 06:23 01/30/22 06:23 Labs: Abnormal Lab Results - Last 24 Hours (Table) 01/30/22 Range/Units 06:23 WBC 15.7 H (3.8-10.6) k/uL RBC 3.17 L (3.80-5.40) m/uL Hgb 9.8 L (11.4-16.0) gm/dL Hct 30.3 L (34.0-46.0) % Microbiology - Last 24 Hours (Table) 01/28/22 20:36 Gram Stain - Preliminary Breast - Right Wound Culture - Preliminary Presumptive MRSA 01/28/22 12:45 Blood Culture - Preliminary Blood No Growth after 24 hours 01/28/22 12:30 Blood Culture - Preliminary Blood No Growth after 24 hours Assessment and Plan (1) Antiphospholipid antibody positive Narrative/Plan: - Repeat for confirmation as recent without evidence of AC therapy Current Visit: No Status: Acute Code(s): R76.0 - RAISED ANTIBODY TITER SNOMED Code(s): 014894457 (2) Leukocytosis Narrative/Plan: Reactive to Infectious inflammatory right breast Current Visit: Yes Status: Acute Code(s): D72.829 - ELEVATED WHITE BLOOD CELL COUNT, UNSPECIFIED SNOMED Code(s): 379498916 (3) Abscess of right breast Current Visit: Yes Status: Acute Code(s): N61.1 - ABSCESS OF THE BREAST AND NIPPLE SNOMED Code(s): 08607058 (4) Cellulitis of right breast Narrative/Plan: General surgery status post I and D and on IV antibiotics Current Visit: Yes Status: Acute Code(s): N61.0 - MASTITIS WITHOUT ABSCESS SNOMED Code(s): 59509493 (5) Normocytic anemia Narrative/Plan: Work-up ordered Patient is post Current Visit: Yes Status: Acute Code(s): D64.9 - ANEMIA, UNSPECIFIED SNOM ED Code(s): 228958080 Plan: Recheck Antiphospholipid panel in 3 months as can alter results Dr. Attest: I have completed the full history and physical and developed the above impression and plan, agree with dictation, dictated as ascribe
[2022-01-30 20:47] LABS: % Iron Saturation 5.04 (12.00-45.00)
[2022-01-30 22:33] LABS: Cardiolipin IgA Antibody 5.1 U/mL
[2022-01-30 22:34] LABS: Cardiolipin Ab IgG Interp Positive (NEGATIVE); Cardiolipin Ab IgM Interp NEGATIVE (NEGATIVE); Cardiolipin IgM Antibody 1.8 U/mL
--- NOTE | 2022-01-30 23:50 | P.PN ---
Subjective Progress Note Date: 01/30/22 Objective - Vital Signs Vital signs: Vital Signs Temp 98.2 F 01/30/22 13:11 Pulse 119 H 01/30/22 13:11 Resp 14 01/30/22 13:11 BP 101/65 01/30/22 13:11 Pulse Ox 98 01/30/22 13:11 FiO2 Intake & Output 01/30/22 01/30/22 01/31/22 06:59 18:59 06:59 Intake Total 488 Balance 488 Intake: Intake, IV Titration 250 Amount Vancomycin 1,000 mg In 250 Sodium Chloride 0.9% 250 ml @ 125 mls/hr IVPB Q8HR [facility] Rx#:[id number] Oral 238 Other: Voiding Method Toilet # Voids 2 2 - Labs CBC & Chem 7: 01/30/22 06:23 01/30/22 06:23 Labs: Abnormal Lab Results - Last 24 Hours (Table) 01/30/22 01/30/22 01/30/22 Range/Units 06:23 10:07 10:07 WBC 15.7 H (3.8-10.6) k/uL RBC 3.17 L (3.80-5.40) m/uL Hgb 9.8 L (11.4-16.0) gm/dL Hct 30.3 L (34.0-46.0) % Neutrophils # 10.3 H (1.3-7.7) k/uL Eosinophils # 3.0 H (0-0.7) k/uL Iron 11 L (50-170) ug/dL TIBC 214 L (228-460) ug/dL % Saturation 5.04 L (12.00-45.00) Transferrin 153.0 L (204.0-354.0) mg/dL Cardiolipin IgG Interp Positive A (NEGATIVE) Microbiology - Last 24 Hours (Table) 01/28/22 12:45 Blood Culture - Preliminary Blood No Growth after 48 hours 01/28/22 12:30 Blood Culture - Preliminary Blood No Growth after 48 hours 01/28/22 20:36 Gram Stain - Preliminary Breast - Right Wound Culture - Preliminary Presumptive MRSA
[2022-01-31] MEDS: VANCOMYCIN 1,000 MG in SODIUM CHLORIDE 0.9% 250 ML IVPB SCH (00:27)
[2022-01-31] MEDS: ACETAMINOPHEN TAB 325 MG TAB PO PRN (00:31)
[2022-01-31] MEDS ORDERED: VANCOMYCIN TROUGH DUE 1 EACH MISC MISCELLANE ONE (07:00)
[2022-01-31 08:31] VITALS: BP 106/67; PULSE 82; RESP 16; TEMP 97.5
[2022-01-31] MEDS: HEPARIN SODIUM,PORCINE/PF 5,000 UNIT/0.5 ML SYRINGE SQ SCH (09:18)
--- NOTE | 2022-01-31 09:28 | P.PN ---
Subjective Progress Note Date: 01/30/22 Principal diagnosis: Right breast abscess MRSA Patient is a 31-year-old female 2 weeks presented to hospital right breast pain swelling and redness failing outpatient oral amoxicillin therapy patient was diagnosed with right breast abscess status post drainage culture with presumptive MRSA. On today's evaluation that is 01/30/2022, the patient denies having any fever or chills, overall pain and discomfort to the right breast has slightly decreased in intensity, the patient denies having any chest pain or shortness of breath or cough no nausea no vomiting no abdominal pain or diarrhea Objective - Vital Signs Vital signs: Vital Signs Temp 98.5 F 01/30/22 07:00 Pulse 90 01/30/22 07:00 Resp 16 01/30/22 07:00 BP 92/44 01/30/22 07:00 Pulse Ox 99 01/30/22 07:00 FiO2 Intake & Output 01/29/22 01/30/22 01/30/22 18:59 06:59 18:59 Intake Total 160 120 Balance 160 120 Intake: Intake, IV Titration 160 Amount Lactated Ringers 1,000 ml 160 @ 100 mls/hr IV .Q10H ONE Rx#:[id number] Oral 120 Other: Voiding Method Toilet # Voids 2 - Exam GENERAL DESCRIPTION: A middle-age female lying in bed in no distress RESPIRATORY SYSTEM: Unlabored breathing , decreased breath sounds at bases HEART: S1 S2 regular rate and rhythm , ABDOMEN: Soft , no tenderness EXTREMITIES: No edema feet Right breast lateral side redness has slightly decreased still has some induration - Labs CBC & Chem 7: 01/30/22 06:23 01/30/22 06:23 Labs: Abnormal Lab Results - Last 24 Hours (Table) 01/30/22 Range/Units 06:23 WBC 15.7 H (3.8-10.6) k/uL RBC 3.17 L (3.80-5.40) m/uL Hgb 9.8 L (11.4-16.0) gm/dL Hct 30.3 L (34.0-46.0) % Neutrophils # 10.3 H (1.3-7.7) k/uL Eosinophils # 3.0 H (0-0.7) k/uL Microbiology - Last 24 Hours (Table) 01/28/22 20:36 Gram Stain - Preliminary Breast - Right Wound Culture - Preliminary Presumptive MRSA 01/28/22 12:45 Blood Culture - Preliminary Blood No Growth after 24 hours 01/28/22 12:30 Blood Culture - Preliminary Blood No Growth after 24 hours Assessment and Plan (1) Abscess of right breast Current Visit: Yes Status: Acute Code(s): N61.1 - ABSCESS OF THE BREAST AND NIPPLE SNOMED Code(s): 56055072 Plan: 1patient presented to hospital right breast pain swelling redness has been diagnosed with a right breast multiloculated abscess failing outpatient oral amoxicillin therapy. Culture currently growing presumptive MRSA 2patient to continue with vancomycin pharmacy to dose target trough of 15 while watching kidney function and vancomycin trough closely. 3in view of extensive infection patient benefit from IV antibiotic option of daily daptomycin at the infusion clinic discussed with the patient with the patient is agreeable, midline will be placed and plan for 10 day course of daptomycin Time with Patient: Less than 30
[2022-01-31] MEDS ORDERED: FERROUS SULFATE 325 MG TAB PO SCH (12:30)
[2022-02-03 10:48] LABS: APTT 68 Sec(s) (<43); APTT 1:1 Mix 57 Sec(s) (<43); DRVVT 1:1 Mix 51 Sec(s) (<44); DRVVT Confirmation Positive (Negative); Dilute Russell Viper Venom 62 Sec(s) (<44); Hexagonal Phase Neutralization Positive (Negative)
== END 2022-01-31 11:37 | disposition home or self-care (01) | DRG 776 ==
LOC: EC 08:02 → 6NMEDSUR 12:42 → OBSVTOIN 01-30 08:34
PROVIDERS: ADMIT Surgery; ATTEND Surgery
PROC: 0H9T00Z Drainage of Right Breast with Drainage Device, Open Approach (ICD-10-PCS; principal; 2022-01-28 11:05)
DX: O99.73 Diseases of the skin and subcutaneous tissue complicating the puerperium (principal); N61.1 Abscess of the breast and nipple; O99.03 Anemia complicating the puerperium; B95.62 Methicillin resistant Staphylococcus aureus infection as the cause of diseases classified elsewhere; R76.0 Raised antibody titer; Z79.82 Long term (current) use of aspirin
CPT/HCPCS: 80048; 80053; 80202; 81025; 82232; 82565; 82607; 82728; 82746; 82784; 83540; 83550; 83605; 83615; 83735; 85025; 85045; 85598; 85613; 85730; 85732; 86147; 87040; 87070; 87075; 87077; 87186; 87205; 99285

== ENCOUNTER → 2022-04-17 | Outpatient (CLI) | payer MEDICAID ==
[2022-04-17 16:27] LABS: Basophils # (A) 0.05 X 10*3/uL (0.00-0.10); Basophils % (A) 1.4 %; Eosinophils # (A) 0.15 X 10*3/uL (0.04-0.35); Eosinophils % (A) 4.1 %; HGB 14.1 g/dL (12.0-15.0); Immature Grans, Automated 0 %; Lymphocytes # (A) 1.42 X 10*3/uL (0.90-5.00); Lymphocytes % (A) 38.7 %; MCH 29.7 pg (27.0-32.0); MCHC 33.6 g/dL (32.0-37.0); MCV 88.4 fL (80.0-97.0); Mean Platelet Volume 13.7 fL (9.5-12.2); Monocytes # (A) 0.47 X 10*3/uL (0.20-1.00); Monocytes % (A) 12.8 %; NRBC Per 100 WBC 0 /100 WBCS (0.0-0.0); Neutrophils # (A) 1.58 X 10*3/uL (1.80-7.70); Platelet Count 141 X 10*3/uL (140-440); RBC 4.75 X 10*6/uL (4.10-5.20); RDW 14.5 % (11.5-14.5); WBC 3.67 X 10*3/uL (4.50-10.00)
[2022-04-17 17:06] LABS: Erythrocyte Sedimentation Rate 1 mm/Hr (0-20)
[2022-04-17 17:57] LABS: Cardiolipin Ab IgG Interp Positive (NEGATIVE); Cardiolipin Ab IgM Interp NEGATIVE (NEGATIVE); Cardiolipin IgA Antibody 8.3 U/mL; Cardiolipin IgM Antibody 2.3 U/mL
== END | disposition home or self-care (01) ==
LOC: LABWHC1 07:40
PROVIDERS: ATTEND Internal Medicine Hematology & Oncology
DX: D68.312 Antiphospholipid antibody with hemorrhagic disorder (principal)
CPT/HCPCS: 36415; 85025; 85613; 85652; 85730; 86038; 86147; 86431